=== PATIENT | female | born 1975 | race Caucasian/White ===

== ENCOUNTER 2017-07-14 11:53 | Inpatient (IN) | payer MEDICARE, MEDICAID ==
--- NOTE | 2017-07-14 12:06 | ED Physician Chart ---
ED Chief Complaint/HPI - Patient Information Date Seen:: 07/14/17 Time Seen:: 12:00 Chief Complaint:: G-Tube Dysfunction History of Present Illness:: onset x one day of G-Tube dysfunction and poor oral intake; no report of trauma , H/As, neck pain, C/P, SOB, Abd. Pain, A/N/V/D/C, fever, chills, or urinary s/s Historian:: Patient, EMS Review:: Nurse's Note Reviewed, Old Chart Reviewed, EMS run form Reviewed ED Review of Systems - Review of Systems General/Constitutional: No fever, No chills, No weight loss, No weakness, No diaphoresis, No edema, No loss of appetite Skin: No skin lesions, No rash, No bruising Head: No headache, No light-headedness Eyes: No loss of vision, No pain, No diplopia ENT: No earache, No nasal drainage, No sore throat, No tinnitus Neck: No neck pain, No swelling, No thyromegaly, No stiffness, No mass noted Cardio Vascular: No chest pain, No palpitations, No PND, No orthopnea, No edema Pulmonary: No SOB, No cough, No sputum, No wheezing GI: No nausea, No vomiting, No diarrhea, No pain, No melena, No hematochezia, No constipation, No hematemesis G/U: No dysuria, No frequency, No hematuria, No nacturia Lifts And Cranes Inspector: No vaginal discharge, No abnormal vaginal bleed, No contraction Musculoskeletal: No bone or joint pain, No back pain, No muscle pain Endocrine: No polyuria, No polydipsia Psychiatric: No prior psych history, No depression, No anxiety, No suicidal ideation, No homicidal ideation, No auditory hallucination, No visual hallucination Hematopoietic: No bruising, No lymphadenopathy Allergic/Immuno: No urticaria, No angioedema Neurological: No syncope, No focal symptoms, No weakness, No paresthesia, No headache, No seizure, No dizziness, Confusion, No vertigo ED Past Medical History - Past Medical History Obtainable: Yes Past Medical History: Seizures, Dementia, Other (CP;) Family History: HTN Social History: Non Smoker, No Alcohol, No Drug Use, Single, Care Facility Surgical History: PEG/GTube Psychiatricy History: Dementia Medication: Reviewed ED Physical Exam - Physical Examination General/Constitutional: Awake, Well-developed, well-nourished, Alert, No distress, GCS 15, Non-toxic appearing, Ambulatory Head: Atraumatic Eyes: Lids, conjuctiva normal, PERRL, EOMI Skin: Nl inspection, No rash, No skin lesions, No ecchymosis, Well hydrated, No lymphadenopathy ENMT: External ears, nose nl, TM canals nl, Nasal exam nl, Lips, teeth, gums nl , Oropharynx nl, Tonsils nl Neck: Nontender, Full ROM w/o pain, No JVD, No nuchal rigidity, No bruit, No mass, No stridor Respiratory: Nl effort/Exclusion, Clear to Auscultation, No Wheeze/Rhonchi/Rales Cardio Vascular: RRR, No murmur, gallop, rubs, NL S1 S2, Carotid/Femoral/Distal pulses equal bilaterally GI: No tenderness/rebounding/guarding, No organomegaly, No hernia, Normal BS's, Nondistended, No mass/bruits, No McBurney tenderness Other GI comments:: + G-Tube Dysfunction; no pulsatile masses : No CVA tenderness Extremities: No tenderness or effusion, Full ROM, normal strength in all extremities, No edema, Normal digits & nails Neuro/Psych: Alert/oriented, DTR's symmetric, Normal sensory exam, Normal motor strength, Judgement/insight normal, Mood normal, Normal gait, No focal deficits Misc: Normal back, No paraspinal tenderness ED Labs/Radiology/EKG Results - Lab Results Comments:: LA: 2.5 - Radiology Results Comments:: NAD ED Septic Shock - . Is Septic Shock (SBP<90, OR Lactate>4 mmol\L) present?: No ED Reassessment (Disposition) - Reassessment Reassessment Condition:: Improved - Diagnosis Diagnosis:: Dx: G-Tube Dysfunction; Poor Oral Intake; Dehydration - Aftercare/Follow up Instructions Aftercare/Follow-Up Instructions:: Counseled pt regarding lab results/diagnosis & need follow up, Counseled pt & family regarding lab results/diagnosis & need follow up - Patient Disposition Discharge/Transfer:: Acute Care w/in this hosp Accepting Physician:: Dr. Guan Time Called:: [id number] Time Responded:: 12:45 Admitted to:: Med/Surg Spoke to:: Dr. Guan Admitting Medical Physician:: Dr. Guan Condition at Disposition:: Stable, Improved
[2017-07-14] MEDS ORDERED: Sodium Chloride 0.9% 1,000 ML IV ONE (12:07)
[2017-07-14 12:34] LABS: % BASOPHILS 0.5 % (0.0-2.0); % EOSINOPHILS 2.5 % (0.0-5.0); % LYMPHOCYTES 24.3 % (20.0-50.0); % MONOCYTES 8.3 % (2.0-10.0); % NEUTROPHILS 64.4 % (40.0-80.0); EOSINOPHILE ABSOLUTE 0.2 Th/cmm (0.1-0.4); HEMATOCRIT 40.2 % (41.0-60); HEMOGLOBIN 13.3 gm/dL (12-16); MEAN CELL VOLUME 87.2 fl (81-100); MEAN CORPUSCULAR HEMOGLOBIN 28.9 pg (27.0-31.0); MEAN CORPUSCULAR HGB CONC 33.2 pg (28.0-36.0); MONOCYTE ABSOLUTE 0.7 Th/cmm (0.3-1.0); NEUTROPHILE ABSOLUTE 5.5 Th/cmm (1.8-8.0); PLATELET COUNT 308 Th/cmm (150-400); RED BLOOD COUNT 4.61 Mil/cmm (3.80-5.10); RED CELL DISTRIBUTION WIDTH 14.8 % (11.5-20.0); WHITE BLOOD COUNT 8.4 Th/cmm (4.8-10.8)
[2017-07-14 12:41] LABS: ALBUMIN 3.7 gm/dL (3.7-5.3); ALKALINE PHOSPHATASE 75 U/L (34-104); ANION GAP 11.6 (7.0-16.0); BILIRUBIN,TOTAL 0.2 mg/dL (0.3-1.0); BUN - UREA NITROGEN 15 mg/dL (7-25); CALCIUM SERUM 9.3 mg/dL (8.6-10.3); CARBON DIOXIDE 28.5 mEq/L (21.0-31.0); CHLORIDE 99 mEq/L (98-107); CREATININE - SERUM 0.3 mg/dL (0.6-1.2); GFR AFRICAN-AMERICAN > 60.0 ml/min (>90); GFR NON AFRICAN-AMERICAN > 60.0 ml/min; GLUCOSE 80 mg/dL (70-105); INR 1.02 (0.5-1.4); POTASSIUM SERUM 4.1 mEq/L (3.5-5.1); PROTHROMBIN TIME (TEST) 10.6 SECONDS (9.5-11.5); SGOT 14 U/L (13-39); SGPT/ALT 15 U/L (7-52); SODIUM SERUM 135 mEq/L (136-145); TOTAL PROTEIN,SERUM 7.5 gm/dL (6.0-8.3)
[2017-07-14 12:43] LABS: AMYLASE SERUM 26 U/L (29-103); LIPASE 23 U/L (11-82)
[2017-07-14] MEDS ORDERED: Albuterol Nebulizer 2.5mg/3mL HHN PRN (12:47)
[2017-07-14] MEDS ORDERED: Ipratropium Neb 0.5 mg/2.5 mL UD IH PRN (12:47)
--- NOTE | 2017-07-14 14:11 | Diagnostic Imaging Report ---
CHEST X-RAY: AP view INDICATION: Pneumonia COMPARISON: None FINDINGS: Exam is limited due to body habitus and spinal scoliosis. Extensive multilevel spinal scoliosis fixation hardware seen with evidence of fracture of the hardware along the lower thoracic spine. There is elevation of the right hemidiaphragm. Increased interstitial lung markings are noted. No focal consolidation or effusions. Heart size is normal. IMPRESSION: Limited exam due to body habitus and severe spinal scoliosis. Increased interstitial lung markings are noted, nonspecific. No focal consolidation identified. Fracture of the spinal scoliosis hardware along the lower thoracic spine. Findings may be chronic in etiology. Correlation should be made with clinical history and old exams.
[2017-07-14 14:51] LABS: URINE MICROSCOPIC INDICATED? YES; URINE SOURCE MIDSTREAM
[2017-07-14 15:04] LABS: URINE BILIRUBIN NEGATIVE (NEGATIVE); URINE BLOOD MODERATE (NEGATIVE); URINE GLUCOSE (UA) NEGATIVE (NEGATIVE); URINE KETONE NEGATIVE (NEGATIVE); URINE LEUKOCYTE ESTERASE LARGE (NEGATIVE); URINE NITRATE NEGATIVE (NEGATIVE); URINE PH 7.5 (4.6 - 8.0); URINE PROTEIN NEGATIVE (NEGATIVE); URINE UROBILINOGEN 0.2 E.U./dL (0.2 - 1.0)
[2017-07-14 15:05] LABS: URINE CLARITY CLOUDY (CLEAR); URINE COLOR STRAW
[2017-07-14 15:17] LABS: URINE BACTERIA FEW /hpf (NONE SEEN); URINE EPITHELIAL CELLS MANY /lpf (FEW); URINE WBC 25-50 /hpf (0-5)
[2017-07-14 15:24] VITALS: BP 118/79
[2017-07-14] MEDS: Levofloxacin 500mg/100mL 500 MG/100 ML BAG IV SCH (15:29)
[2017-07-14] MEDS: D5-0.45NS 1,000 ML IV SCH (15:31)
--- NOTE | 2017-07-14 16:18 | Internal Medicine Prog Note ---
Internal Medicine Subjective - Subjective Service Date: 07/14/17 ([id number] [id number] ) Internal Medicine Objective - Results Result Diagrams: 07/14/17 12:20 07/14/17 12:20 Recent Labs: Laboratory Last Values WBC 8.4 Th/cmm (4.8-10.8) 07/14/17 12:20 RBC 4.61 Mil/cmm (3.80-5.10) 07/14/17 12:20 Hgb 13.3 gm/dL (12-16) 07/14/17 12:20 Hct 40.2 % (41.0-60) L 07/14/17 12:20 MCV 87.2 fl (81-100) 07/14/17 12:20 MCH 28.9 pg (27.0-31.0) 07/14/17 12:20 MCHC Differential 33.2 pg (28.0-36.0) 07/14/17 12:20 RDW 14.8 % (11.5-20.0) 07/14/17 12:20 Plt Count 308 Th/cmm (150-400) 07/14/17 12:20 MPV 9.0 fl 07/14/17 12:20 Neutrophils % 64.4 % (40.0-80.0) 07/14/17 12:20 Lymphocytes % 24.3 % (20.0-50.0) 07/14/17 12:20 Monocytes % 8.3 % (2.0-10.0) 07/14/17 12:20 Eosinophils % 2.5 % (0.0-5.0) 07/14/17 12:20 Basophils % 0.5 % (0.0-2.0) 07/14/17 12:20 PT 10.6 SECONDS (9.5-11.5) 07/14/17 12:20 INR 1.02 (0.5-1.4) 07/14/17 12:20 PTT (Actin FS) 25.9 SECONDS (26.0-38.0) L 07/14/17 12:20 Sodium 135 mEq/L (136-145) L 07/14/17 12:20 Potassium 4.1 mEq/L (3.5-5.1) 07/14/17 12:20 Chloride 99 mEq/L (98-107) 07/14/17 12:20 Carbon Dioxide 28.5 mEq/L (21.0-31.0) 07/14/17 12:20 Anion Gap 11.6 (7.0-16.0) 07/14/17 12:20 BUN 15 mg/dL (7-25) 07/14/17 12:20 Creatinine 0.3 mg/dL (0.6-1.2) L 07/14/17 12:20 Est GFR ( Amer) > 60.0 ml/min (>90) 07/14/17 12:20 Est GFR (Non-Af Amer) > 60.0 ml/min 07/14/17 12:20 BUN/Creatinine Ratio 50.0 07/14/17 12:20 Glucose 80 mg/dL (70-105) 07/14/17 12:20 Whole Bld Lactic Acid 1.69 mmol/L (0.60-1.99) 07/14/17 14:20 Calcium 9.3 mg/dL (8.6-10.3) 07/14/17 12:20 Total Bilirubin 0.2 mg/dL (0.3-1.0) L 07/14/17 12:20 AST 14 U/L (13-39) 07/14/17 12:20 ALT 15 U/L (7-52) 07/14/17 12:20 Alkaline Phosphatase 75 U/L (34-104) 07/14/17 12:20 Total Protein 7.5 gm/dL (6.0-8.3) 07/14/17 12:20 Albumin 3.7 gm/dL (3.7-5.3) 07/14/17 12:20 Globulin 3.8 gm/dL 07/14/17 12:20 Albumin/Globulin Ratio 1.0 (1.0-1.8) 07/14/17 12:20 Amylase 26 U/L (29-103) L 07/14/17 12:20 Lipase 23 U/L (11-82) 07/14/17 12:20 Serum , Qual NEGATIVE (NEGATIVE) 07/14/17 12:20 Urine Source MIDSTREAM 07/14/17 13:41 Urine Color STRAW 07/14/17 13:41 Urine Clarity CLOUDY (CLEAR) H 07/14/17 13:41 Urine pH 7.5 (4.6 - 8.0) 07/14/17 13:41 Ur Specific [place] <= 1.005 (1.005-1.030) 07/14/17 13:41 Urine Protein NEGATIVE mg/dL (NEGATIVE) 07/14/17 13:41 Urine Glucose (UA) NEGATIVE mg/dL (NEGATIVE) 07/14/17 13:41 Urine Ketones NEGATIVE mg/dL (NEGATIVE) 07/14/17 13:41 Urine Blood MODERATE (NEGATIVE) H 07/14/17 13:41 Urine Nitrate NEGATIVE (NEGATIVE) 07/14/17 13:41 Urine Bilirubin NEGATIVE (NEGATIVE) 07/14/17 13:41 Urine Urobilinogen 0.2 E.U./dL (0.2 - 1.0) 07/14/17 13:41 Ur Leukocyte Esterase LARGE (NEGATIVE) H 07/14/17 13:41 Urine RBC 5-10 /hpf (0-5) H 07/14/17 13:41 Urine WBC 25-50 /hpf (0-5) H 07/14/17 13:41 Ur Epithelial Cells MANY /lpf (FEW) 07/14/17 13:41 Urine Bacteria FEW /hpf (NONE SEEN) 07/14/17 13:41 - Physical Exam Vitals and I&O: Vital Signs Temp 96.5 F 07/14/17 15:48 Pulse 98 07/14/17 15:48 Resp 19 07/14/17 15:48 BP 120/75 07/14/17 15:48 Pulse Ox 98 07/14/17 15:48 Intake & Output 07/13/17 07/14/17 07/14/17 18:59 06:59 18:59 Weight (lbs) 103 lb Other: Weight Source Bedscale Active Medications: Current Medications Acetaminophen (Tylenol) 650 mg PO Q4H PRN PRN Reason: Pain Or Fever above 101 Stop: 09/12/17 12:46 Albuterol Sulfate (Albuterol 2.5mg/3ml Neb Ud) 2.5 mg HHN Q2HRT PRN PRN Reason: Shortness of Breath or Wheeze Stop: 09/12/17 12:46 Calcium Carbonate (Calcium Carb) 1,200 mg GT BID JS Stop: 09/12/17 16:59 Cholecalciferol (Vitamin D3) 1,000 iu GT DAILY [facility] Stop: 09/13/17 08:59 Sodium Chloride (Nacl 0.9%) 1,000 mls @ 100 mls/hr IV .Q10H ONE Stop: 07/14/17 22:06 Dextrose/Sodium Chloride (D5-0.45ns) 1,000 mls @ 80 mls/hr IV .[id number] JS Stop: 09/12/17 12:59 Last Admin: 07/14/17 15:31 Dose: 80 mls/hr Levofloxacin (Levaquin Pb) 500 mg in 100 mls @ 100 mls/hr IV Q24HR JS Stop: 09/12/17 14:59 Last Admin: 07/14/17 15:29 Dose: 100 mls/hr Ipratropium [place] (Atrovent Neb 0.5mg/2.5ml) 0.5 mg IH Q2HRT PRN PRN Reason: Shortness of Breath or Wheeze Stop: 09/12/17 12:46 Levetiracetam (Keppra) 750 mg PO BID [facility] Stop: 09/12/17 16:59 Loratadine (Claritin) 10 mg GT DAILY [facility] Stop: 09/13/17 08:59 Lorazepam (Ativan) 1 mg IV Q4H PRN; Protocol PRN Reason: Seizure Stop: 09/12/17 12:46 Ondansetron HCl (Zofran) 4 mg IV Q8H PRN PRN Reason: Nausea / Vomiting Stop: 09/12/17 12:46 Pantoprazole Sodium (Protonix) 40 mg GT DAILY [facility] Stop: 09/13/17 08:59 Valproate Sodium (Depakene) 500 mg GT BID@0500,1500 JS PRN Reason: Protocol Stop: 09/12/17 14:59 Valproate Sodium (Depakene) 500 mg GT BID@0500,1900 [facility] PRN Reason: Protocol Stop: 09/12/17 18:59 - Procedures Procedures: Procedures Procedure Code Date EGD PLACE GASTROSTOMY TUBE 95568 02/19/00 PERCUTANEOUS [ENDOSCOPIC] GASTROSTOMY [PEG] 43.11 02/19/00
--- NOTE | 2017-07-14 17:57 | History & Physical ---
ADMIT DATE: 07/14/2017 CHIEF COMPLAINT: G-tube dysfunction. HISTORY OF PRESENT ILLNESS: This is a 42-year-old female who is a resident of [facility], admitted here to the med/surg unit due to G-tube dysfunction. In the ER, patient's ER physician tried to reinsert G-tube, unable to hold closed. For further management, the patient is now admitted. PAST MEDICAL HISTORY: Seizures, dementia, cerebral palsy. FAMILY HISTORY: Noncontributory. SOCIAL HISTORY: The patient is a half-way resident requiring 24-hour nursing care. PAST SURGICAL HISTORY: PEG. MEDICATIONS: Please see medication list. REVIEW OF SYSTEMS: Unable to obtain due to patient's mental status. The patient is nonverbal. PHYSICAL EXAMINATION: GENERAL: The patient is well developed, well nourished, no acute distress. VITAL SIGNS: Temperature 96.5, heart rate 98, blood pressure 120/75, respirations 19, O2 98%. HEENT: Head; normocephalic, atraumatic. NECK: Supple. No mass. LUNGS: Clear bilaterally. HEART: Regular rate and rhythm. ABDOMEN: Soft, nontender. LABORATORY DATA: WBC 8.4, H and H 13.3 and 40.2, platelet of 308. Sodium 135, potassium 4.1, chloride 99, BUN 15, creatinine 0.3. DIAGNOSTIC DATA: The patient had a chest x-ray done, impression is fracture of the spinal scoliosis hardware along the lower thoracic spine. Findings may be chronic in etiology. ASSESSMENT: G-tube malfunction, acute dehydration, possible sepsis, acute UTI, cerebral palsy, dementia, and seizures. PLAN: The patient to be admitted to the med/surg unit. We will get GI on the case. IV fluids for hydration. Seizure precautions will be initiated. Keep patient on empiric IV antibiotics. We will continue to follow this patient. JOB# [id number]
[2017-07-15] MEDS: Valproate Sodium 500 MG in Sodium Chloride 0.9% 100 ML IV SCH ×3 (00:03→22:05)
[2017-07-15] MEDS: D5-0.45NS 1,000 ML IV SCH ×3 (01:30→16:15)
[2017-07-15 06:40] LABS: EOSINOPHILE ABSOLUTE 0.2 Th/cmm (0.1-0.4); INR 1.06 (0.5-1.4); MONOCYTE ABSOLUTE 0.6 Th/cmm (0.3-1.0); WHITE BLOOD COUNT 7.3 Th/cmm (4.8-10.8)
[2017-07-15 06:44] LABS: % BASOPHILS 0.3 % (0.0-2.0); % LYMPHOCYTES 44.6 % (20.0-50.0); % MONOCYTES 8.4 % (2.0-10.0); % NEUTROPHILS 43.7 % (40.0-80.0); HEMATOCRIT 35.9 % (41.0-60); HEMOGLOBIN 12.4 gm/dL (12-16); LYMPHOCYTE ABSOLUTE 3.3 Th/cmm (1.5-3.0); MEAN CELL VOLUME 87.3 fl (81-100); MEAN CORPUSCULAR HEMOGLOBIN 30.1 pg (27.0-31.0); MEAN CORPUSCULAR HGB CONC 34.5 pg (28.0-36.0); MEAN PLATELET VOLUME 9.2 fl; NEUTROPHILE ABSOLUTE 3.2 Th/cmm (1.8-8.0); PLATELET COUNT 256 Th/cmm (150-400); RED BLOOD COUNT 4.11 Mil/cmm (3.80-5.10); RED CELL DISTRIBUTION WIDTH 14.4 % (11.5-20.0)
[2017-07-15 06:54] LABS: ANION GAP 10.7 (7.0-16.0); BUN - UREA NITROGEN 8 mg/dL (7-25); CALCIUM SERUM 8.9 mg/dL (8.6-10.3); CARBON DIOXIDE 26.6 mEq/L (21.0-31.0); CHLORIDE 105 mEq/L (98-107); CREATININE - SERUM 0.3 mg/dL (0.6-1.2); GFR AFRICAN-AMERICAN > 60.0 ml/min (>90); GFR NON AFRICAN-AMERICAN > 60.0 ml/min; GLUCOSE 94 mg/dL (70-105); POTASSIUM SERUM 4.3 mEq/L (3.5-5.1); SODIUM SERUM 138 mEq/L (136-145)
[2017-07-15] MEDS: Multivitamin w/ Minerals Tab GT SCH (08:36)
[2017-07-15] MEDS ORDERED: Pantoprazole 40 mg/Packet GT SCH (09:00)
[2017-07-15] MEDS: Levofloxacin 500mg/100mL 500 MG/100 ML BAG IV SCH (15:08)
--- NOTE | 2017-07-15 15:35 | Internal Medicine Prog Note ---
Internal Medicine Subjective - Subjective Service Date: 07/15/17 (patient seen and examined. bilateral eye lids noted with edema, no redness or drainage from conjuntiva) Patient is:: awake, non-verbal Per staff patient has:: tolerating meds Internal Medicine Objective - Results Result Diagrams: 07/15/17 06:00 07/15/17 06:00 Recent Labs: Laboratory Last Values WBC 7.3 Th/cmm (4.8-10.8) 07/15/17 06:00 RBC 4.11 Mil/cmm (3.80-5.10) 07/15/17 06:00 Hgb 12.4 gm/dL (12-16) 07/15/17 06:00 Hct 35.9 % (41.0-60) L 07/15/17 06:00 MCV 87.3 fl (81-100) 07/15/17 06:00 MCH 30.1 pg (27.0-31.0) 07/15/17 06:00 MCHC Differential 34.5 pg (28.0-36.0) 07/15/17 06:00 RDW 14.4 % (11.5-20.0) 07/15/17 06:00 Plt Count 256 Th/cmm (150-400) 07/15/17 06:00 MPV 9.2 fl 07/15/17 06:00 Neutrophils % 43.7 % (40.0-80.0) 07/15/17 06:00 Lymphocytes % 44.6 % (20.0-50.0) 07/15/17 06:00 Monocytes % 8.4 % (2.0-10.0) 07/15/17 06:00 Eosinophils % 3.0 % (0.0-5.0) 07/15/17 06:00 Basophils % 0.3 % (0.0-2.0) 07/15/17 06:00 PT 11.0 SECONDS (9.5-11.5) 07/15/17 06:00 INR 1.06 (0.5-1.4) 07/15/17 06:00 PTT (Actin FS) 25.9 SECONDS (26.0-38.0) L 07/14/17 12:20 Sodium 138 mEq/L (136-145) 07/15/17 06:00 Potassium 4.3 mEq/L (3.5-5.1) 07/15/17 06:00 Chloride 105 mEq/L (98-107) 07/15/17 06:00 Carbon Dioxide 26.6 mEq/L (21.0-31.0) 07/15/17 06:00 Anion Gap 10.7 (7.0-16.0) 07/15/17 06:00 BUN 8 mg/dL (7-25) 07/15/17 06:00 Creatinine 0.3 mg/dL (0.6-1.2) L 07/15/17 06:00 Est GFR ( Amer) > 60.0 ml/min (>90) 07/15/17 06:00 Est GFR (Non-Af Amer) > 60.0 ml/min 07/15/17 06:00 BUN/Creatinine Ratio 26.7 07/15/17 06:00 Glucose 94 mg/dL (70-105) 07/15/17 06:00 Whole Bld Lactic Acid 1.69 mmol/L (0.60-1.99) 07/14/17 14:20 Calcium 8.9 mg/dL (8.6-10.3) 07/15/17 06:00 Total Bilirubin 0.2 mg/dL (0.3-1.0) L 07/14/17 12:20 AST 14 U/L (13-39) 07/14/17 12:20 ALT 15 U/L (7-52) 07/14/17 12:20 Alkaline Phosphatase 75 U/L (34-104) 07/14/17 12:20 Total Protein 7.5 gm/dL (6.0-8.3) 07/14/17 12:20 Albumin 3.7 gm/dL (3.7-5.3) 07/14/17 12:20 Globulin 3.8 gm/dL 07/14/17 12:20 Albumin/Globulin Ratio 1.0 (1.0-1.8) 07/14/17 12:20 Amylase 26 U/L (29-103) L 07/14/17 12:20 Lipase 23 U/L (11-82) 07/14/17 12:20 TSH 9.35 uIU/ml (0.34-5.60) H 07/15/17 06:00 Serum , Qual NEGATIVE (NEGATIVE) 07/14/17 12:20 Urine Source MIDSTREAM 07/14/17 13:41 Urine Color STRAW 07/14/17 13:41 Urine Clarity CLOUDY (CLEAR) H 07/14/17 13:41 Urine pH 7.5 (4.6 - 8.0) 07/14/17 13:41 Ur Specific [place] <= 1.005 (1.005-1.030) 07/14/17 13:41 Urine Protein NEGATIVE mg/dL (NEGATIVE) 07/14/17 13:41 Urine Glucose (UA) NEGATIVE mg/dL (NEGATIVE) 07/14/17 13:41 Urine Ketones NEGATIVE mg/dL (NEGATIVE) 07/14/17 13:41 Urine Blood MODERATE (NEGATIVE) H 07/14/17 13:41 Urine Nitrate NEGATIVE (NEGATIVE) 07/14/17 13:41 Urine Bilirubin NEGATIVE (NEGATIVE) 07/14/17 13:41 Urine Urobilinogen 0.2 E.U./dL (0.2 - 1.0) 07/14/17 13:41 Ur Leukocyte Esterase LARGE (NEGATIVE) H 07/14/17 13:41 Urine RBC 5-10 /hpf (0-5) H 07/14/17 13:41 Urine WBC 25-50 /hpf (0-5) H 07/14/17 13:41 Ur Epithelial Cells MANY /lpf (FEW) 07/14/17 13:41 Urine Bacteria FEW /hpf (NONE SEEN) 07/14/17 13:41 Valproic Acid 50.3 ug/mL (50.0-100.0) 07/14/17 12:20 - Physical Exam Vitals and I&O: Vital Signs Temp 95.2 F 07/15/17 12:03 Pulse 107 07/15/17 12:03 Resp 18 07/15/17 12:03 BP 112/71 07/15/17 12:03 Pulse Ox 98 07/15/17 12:03 Intake & Output 07/14/17 07/15/17 07/15/17 18:59 06:59 18:59 Intake Total 100 1212.5 Output Total 0 Balance 100 1212.5 Weight (lbs) 103 lb 102 lb 103 lb Intake: Intake, IV Amount 100 1212.5 D5-0.45NS 1,000 ml @ 80 1000 mls/hr IV .[id number] JS Rx #:[id number] Levetiracetam 750 mg In 107.5 Sodium Chloride 0.9% 100 ml @ 200 mls/hr IV Q12H [facility] Rx#:[id number] Levofloxacin 500mg/100mL 100 500 mg In 100 ml @ 100 mls/hr IV Q24HR [facility] Rx#: [id number] Valproate Sodium 500 mg 105 In Sodium Chloride 0.9% 100 ml @ 100 mls/hr IV Q12H [facility] Rx#:[id number] Oral 0 Output: Stool 0 Other: # Voids 2 # Bowel Movements 0 Weight Source Bedscale Bedscale Bedscale Active Medications: Current Medications Acetaminophen (Tylenol) 650 mg PO Q4H PRN PRN Reason: Pain Or Fever above 101 Stop: 09/12/17 12:46 Albuterol Sulfate (Albuterol 2.5mg/3ml Neb Ud) 2.5 mg HHN Q2HRT PRN PRN Reason: Shortness of Breath or Wheeze Stop: 09/12/17 12:46 Calcium Carbonate (Calcium Carb) 1,200 mg GT BID [facility] Stop: 09/12/17 16:59 Last Admin: 07/15/17 08:35 Dose: Not Given Cholecalciferol (Vitamin D3) 1,000 iu GT DAILY [facility] Stop: 09/13/17 08:59 Last Admin: 07/15/17 08:35 Dose: Not Given Diphenhydramine HCl (Benadryl 50 Mg/Ml) 25 mg IVP STAT ONE Stop: 07/15/17 15:33 Dextrose/Sodium Chloride (D5-0.45ns) 1,000 mls @ 80 mls/hr IV .[id number] [facility] Stop: 09/12/17 12:59 Last Admin: 07/15/17 15:07 Dose: 80 mls/hr Levofloxacin (Levaquin Pb) 500 mg in 100 mls @ 100 mls/hr IV Q24HR [facility] Stop: 09/12/17 14:59 Last Admin: 07/15/17 15:08 Dose: 100 mls/hr Valproate Sodium 500 mg/ (Sodium Chloride) 105 mls @ 100 mls/hr IV Q12H [facility] Stop: 09/12/17 19:59 Last Admin: 07/15/17 09:00 Dose: 100 mls/hr Levetiracetam 750 mg/ Sodium (Chloride) 107.5 mls @ 200 mls/hr IV Q12H JS Stop: 09/12/17 19:59 Last Admin: 07/15/17 08:35 Dose: 200 mls/hr Ipratropium [place] (Atrovent Neb 0.5mg/2.5ml) 0.5 mg IH Q2HRT PRN PRN Reason: Shortness of Breath or Wheeze Stop: 09/12/17 12:46 Levothyroxine Sodium (Synthroid) 0.05 mg PO QDAC JS Stop: 09/14/17 07:29 Loratadine (Claritin) 10 mg GT DAILY JS Stop: 09/13/17 08:59 Last Admin: 07/15/17 08:35 Dose: Not Given Lorazepam (Ativan) 1 mg IV Q4H PRN; Protocol PRN Reason: Seizure Stop: 09/12/17 12:46 Last Admin: 07/14/17 18:32 Dose: 1 mg Ondansetron HCl (Zofran) 4 mg IV Q8H PRN PRN Reason: Nausea / Vomiting Stop: 09/12/17 12:46 Pantoprazole Sodium (Protonix) 40 mg IVP DAILY JS Stop: 09/12/17 17:14 Last Admin: 07/15/17 08:36 Dose: Not Given General: weak, alert HEENT: NC/AT, PERRLA, other (bilateral eyelid edema) Neck: Supple Lungs: CTAB Abdomen: soft, non-tender, non-distended Extremities: excoriation Neurological: unable to follow command - Procedures Procedures: Procedures Procedure Code Date EGD PLACE GASTROSTOMY TUBE 93643 02/19/00 PERCUTANEOUS [ENDOSCOPIC] GASTROSTOMY [PEG] 43.11 02/19/00 Internal Medicine Assmt/Plan - Assessment Assessment: gt malfunction acute dehydration possible sepsis acute uti bilateral eyelid edema- allergic reaction? dementia seizures - Plan Plan: benadryl 25mg iv x1 decrease ivf to 50ml/hr cbc/bmp in am monitor bilateral eye swelling continue current plan of care Nutritional Asmnt/Malnutr-PDOC - Dietary Evaluation Malnutrition Findings (Please click <Entered> for more info): Nutritional Asmnt/Malnutrition Start: 07/15/17 14: 51 Text: Status: Complete Freq: Document 07/15/17 14:51 [email or web address] (Rec: 07/15/17 15:03 [id number]) Nutritional Asmnt/Malnutrition Patient General Information Nutritional Screening High Risk Diagnosis dehydration, possible sepsis Pertinent Medical Hx/Surgical Hx seizure, dementia, cerabral palsy, PEG Subjective Information Per nurse, pt has PEG placement around noon today. Current Diet Order/ Nutrition Support NPO Pertinent Medications vit D3, D5-0.45ns, levaquin, synthroid, protonix, Pertinent Labs 5/3 Cr 0.3 Nutritional Hx/Data Height 4 ft 4 in Height (Calculated Centimeters) 132.1 Current Weight (lbs) 103 lb Weight (Calculated Kilograms) 46.7 Weight (Calculated Grams) 77113.0 [place] Body Weight 84 Body Mass Index (BMI) 26.7 Weight Status Overweight GI Symptoms GI Symptoms None Last BM none Difficult in: None Skin Integrity/Comment: RED SPOTS ON UPPER AND LOWER EXTREMITIES SURGICAL SCAR to back area Current %PO Negligible < 25% Estimated Nutritional Goals BEE in Kcals: Using Current wt Calories/Kcals/Kg 25-30 Kcals Calculated 3603-2217 Protein: Using Current wt Protein g/k-1.2 Protein Calculated 47-56 Fluid: ml 1175-1410ml (1ml/kcal) Nutritional Problem 1. Problem Problem inadequate energy intake Etiology nutiriton support not initiated Signs/Symptoms: pt on NPO Intervention/Recommendation Comments 1. If tube feeding needed, recommend fibersource 45ml/hr continuous. It provides 1296kcal, 58g protein, 875ml free water, meeting 100% of nutritional needs 2. Monitor TF tolerance, wt weekly, skin integrity and labs 3. F/U as high risk in 2-3 days, 5/5-5/6 Expected Outcomes/Goals Expected Outcomes/Goals 1. Pt to meet at least 75% of nutritional needs via nutrition support with tolerance 2. Wt stability, skin to remain intact, labs to approach WNL.
[2017-07-15] MEDS ORDERED: Morphine Sulfate 2 mg/mL 1mL Syr IM PRN (16:12)
[2017-07-15] MEDS ORDERED: Morphine Sulfate 4 mg/mL 1mL Syr ONE (16:28)
[2017-07-15] MEDS ORDERED: Morphine Sulfate 4 mg/mL 1mL Syr IM PRN (16:30)
--- NOTE | 2017-07-15 17:32 | Operative Report ---
DATE OF SURGERY: 07/15/2017 INPATIENT GASTROINTESTINAL PROCEDURE NOTE NAME OF PROCEDURE: PEG tube placement. REFERRING PHYSICIAN: Dr. Guan. REASON FOR PROCEDURE: Malfunctioning G-tube, dysphagia. CONSENT: Risks, benefits, alternatives, nature, indication, possible outcomes were discussed. Mentioned bleeding, infection, perforation, , disability, cardiopulmonary distress and arrest, missed lesion and cancers, need for surgery, cellulitis, malfunctioning feeding tube and patient pulling out the feeding tube. The patient's family expressed understanding and provided informed consent. PREOPERATIVE DIAGNOSIS: Dysphagia, malfunctioning G-tube. POSTOPERATIVE DIAGNOSIS: New PEG tube placed. MEDICATIONS: Provided by the anesthesiologist due to patient's mental challenges. DESCRIPTION OF PROCEDURE: The patient was placed on her back. Upper endoscope advanced from mouth to second portion of duodenum. Scope brought back in stomach with retroflexion view of fundus, cardia and lesser curvature. Scope was straightened. The gastrocutaneous fistula site was still open. Using a guidewire, we advanced it from the outside into the stomach lumen, captured with a snare, pulled out through the oral end of the patient. PEG tube was attached to the oral end of the wire. The wire was then pulled into position pulling along with it, the PEG tube. Gastroscope readvanced back to the stomach where the bumper seen in satisfactory position. Scope was removed. COMPLICATIONS: None. FINDINGS: New PEG tube placed in the original site. RECOMMENDATIONS: 1. Use G-tube. 2. Check residual every 6 hours and hold greater than 100 mL. 3. Abdominal binder to protect the G-tube. Thank you for allowing me to participate. Please call me if any questions. JOB# [id number]
[2017-07-15] MEDS ORDERED: Levetiracetam 500 mg/5mL 5mL UDSyr *for ORAL USE ONLY ONE (23:10)
[2017-07-15] MEDS ORDERED: Levetiracetam 500 mg/5mL 5mL Vial IV ONE (23:13)
[2017-07-16 05:35] LABS: % BASOPHILS 0.7 % (0.0-2.0); % EOSINOPHILS 1.6 % (0.0-5.0); % LYMPHOCYTES 21.6 % (20.0-50.0); % MONOCYTES 7.3 % (2.0-10.0); % NEUTROPHILS 68.8 % (40.0-80.0); BASOPHILE ABSOLUTE 0.1 Th/cumm (0-0.2); EOSINOPHILE ABSOLUTE 0.2 Th/cmm (0.1-0.4); HEMATOCRIT 36.4 % (41.0-60); HEMOGLOBIN 12.4 gm/dL (12-16); LYMPHOCYTE ABSOLUTE 2.3 Th/cmm (1.5-3.0); MEAN CELL VOLUME 87.5 fl (81-100); MEAN CORPUSCULAR HEMOGLOBIN 29.8 pg (27.0-31.0); MEAN CORPUSCULAR HGB CONC 34.1 pg (28.0-36.0); MEAN PLATELET VOLUME 10.1 fl; MONOCYTE ABSOLUTE 0.8 Th/cmm (0.3-1.0); NEUTROPHILE ABSOLUTE 7.2 Th/cmm (1.8-8.0); PLATELET COUNT 257 Th/cmm (150-400); RED BLOOD COUNT 4.17 Mil/cmm (3.80-5.10); RED CELL DISTRIBUTION WIDTH 14.6 % (11.5-20.0)
[2017-07-16 05:42] LABS: ANION GAP 8.5 (7.0-16.0); BUN - UREA NITROGEN 5 mg/dL (7-25); CALCIUM SERUM 8.9 mg/dL (8.6-10.3); CARBON DIOXIDE 26.6 mEq/L (21.0-31.0); CHLORIDE 105 mEq/L (98-107); CREATININE - SERUM 0.3 mg/dL (0.6-1.2); GFR AFRICAN-AMERICAN > 60.0 ml/min (>90); GFR NON AFRICAN-AMERICAN > 60.0 ml/min; GLUCOSE 94 mg/dL (70-105); POTASSIUM SERUM 4.1 mEq/L (3.5-5.1); SODIUM SERUM 136 mEq/L (136-145)
[2017-07-16 05:51] LABS: WHITE BLOOD COUNT 10.6 Th/cmm (4.8-10.8)
[2017-07-16] MEDS: Multivitamin w/ Minerals Tab GT SCH (08:41)
[2017-07-16] MEDS: Levothyroxine 0.05 Mg Tab PO SCH (08:41)
[2017-07-16] MEDS: Valproate Sodium 500 MG in Sodium Chloride 0.9% 100 ML IV SCH ×2 (09:40→20:37)
--- NOTE | 2017-07-16 11:38 | Consultation ---
DATE OF CONSULTATION: 07/15/2017 INPATIENT GASTROINTESTINAL CONSULT REFERRING PHYSICIAN: Dr. Guan. REASON FOR CONSULTATION: Malfunctioning G-tube, dysphagia. HISTORY OF PRESENT ILLNESS: This is a 42-year-old female, mentally challenged from a skilled facility, apparently pulled out a G-tube and the hole is too small for them to replace it. Therefore, she was sent to the hospital. She is otherwise a poor historian. PAST MEDICAL HISTORY: Seizure disorder, dementia, cerebral palsy. PAST SURGICAL HISTORY: PEG tube placement. FAMILY HISTORY: Noncontributory. SOCIAL HISTORY: No tobacco, alcohol or IV drug usage. ALLERGIES: SULFA, BACTRIM. CURRENT MEDICATIONS: Tylenol, calcium, Ativan, levetiracetam, Levaquin, Synthroid, Claritin, Ativan, Zofran, Protonix, valproic acid. REVIEW OF SYSTEMS: Unobtainable. PHYSICAL EXAMINATION: VITAL SIGNS: Temperature 95.2, breathing 18, pulse of 107, blood pressure 112/71, satting 98%. GENERAL: In no apparent distress. HEENT: Normocephalic, atraumatic. NECK: Soft, supple. CHEST: Clear. No effort. CARDIOVASCULAR: Regular rate and rhythm. ABDOMEN: Soft, nontender, nondistended with a gastrocutaneous fistula site. SKIN: Warm, dry. EXTREMITIES: Reveal no cyanosis. LABORATORY AND DIAGNOSTIC DATA: Labs show white count 7.3, hemoglobin 12.4, platelets of 256. INR 1.06. IMPRESSION: This is a 42-year-old female with dysphagia, pulled out her feeding tube, will need to have it replaced. PLAN: PEG to be done. Thank you for allowing me to participate. Please call me if you have any questions. JOB# [id number]
[2017-07-16] MEDS: D5-0.45NS 1,000 ML IV SCH (13:36)
[2017-07-16] MEDS: Levofloxacin 500mg/100mL 500 MG/100 ML BAG IV SCH (14:29)
--- NOTE | 2017-07-16 14:52 | Internal Medicine Prog Note ---
Internal Medicine Subjective - Subjective Service Date: 07/16/17 Patient seen and examined:: with staff Patient is:: awake, non-verbal Per staff patient has:: tolerating meds Internal Medicine Objective - Results Result Diagrams: 07/16/17 05:05 07/16/17 05:05 Recent Labs: Laboratory Last Values WBC 10.6 Th/cmm (4.8-10.8) D 07/16/17 05:05 RBC 4.17 Mil/cmm (3.80-5.10) 07/16/17 05:05 Hgb 12.4 gm/dL (12-16) 07/16/17 05:05 Hct 36.4 % (41.0-60) L 07/16/17 05:05 MCV 87.5 fl (81-100) 07/16/17 05:05 MCH 29.8 pg (27.0-31.0) 07/16/17 05:05 MCHC Differential 34.1 pg (28.0-36.0) 07/16/17 05:05 RDW 14.6 % (11.5-20.0) 07/16/17 05:05 Plt Count 257 Th/cmm (150-400) 07/16/17 05:05 MPV 10.1 fl 07/16/17 05:05 Neutrophils % 68.8 % (40.0-80.0) 07/16/17 05:05 Lymphocytes % 21.6 % (20.0-50.0) 07/16/17 05:05 Monocytes % 7.3 % (2.0-10.0) 07/16/17 05:05 Eosinophils % 1.6 % (0.0-5.0) 07/16/17 05:05 Basophils % 0.7 % (0.0-2.0) 07/16/17 05:05 PT 11.0 SECONDS (9.5-11.5) 07/15/17 06:00 INR 1.06 (0.5-1.4) 07/15/17 06:00 PTT (Actin FS) 25.9 SECONDS (26.0-38.0) L 07/14/17 12:20 Sodium 136 mEq/L (136-145) 07/16/17 05:05 Potassium 4.1 mEq/L (3.5-5.1) 07/16/17 05:05 Chloride 105 mEq/L (98-107) 07/16/17 05:05 Carbon Dioxide 26.6 mEq/L (21.0-31.0) 07/16/17 05:05 Anion Gap 8.5 (7.0-16.0) 07/16/17 05:05 BUN 5 mg/dL (7-25) L 07/16/17 05:05 Creatinine 0.3 mg/dL (0.6-1.2) L 07/16/17 05:05 Est GFR ( Amer) > 60.0 ml/min (>90) 07/16/17 05:05 Est GFR (Non-Af Amer) > 60.0 ml/min 07/16/17 05:05 BUN/Creatinine Ratio 16.7 07/16/17 05:05 Glucose 94 mg/dL (70-105) 07/16/17 05:05 Whole Bld Lactic Acid 1.69 mmol/L (0.60-1.99) 07/14/17 14:20 Calcium 8.9 mg/dL (8.6-10.3) 07/16/17 05:05 Total Bilirubin 0.2 mg/dL (0.3-1.0) L 07/14/17 12:20 AST 14 U/L (13-39) 07/14/17 12:20 ALT 15 U/L (7-52) 07/14/17 12:20 Alkaline Phosphatase 75 U/L (34-104) 07/14/17 12:20 Total Protein 7.5 gm/dL (6.0-8.3) 07/14/17 12:20 Albumin 3.7 gm/dL (3.7-5.3) 07/14/17 12:20 Globulin 3.8 gm/dL 07/14/17 12:20 Albumin/Globulin Ratio 1.0 (1.0-1.8) 07/14/17 12:20 Amylase 26 U/L (29-103) L 07/14/17 12:20 Lipase 23 U/L (11-82) 07/14/17 12:20 TSH 9.35 uIU/ml (0.34-5.60) H 07/15/17 06:00 Serum , Qual NEGATIVE (NEGATIVE) 07/14/17 12:20 Urine Source MIDSTREAM 07/14/17 13:41 Urine Color STRAW 07/14/17 13:41 Urine Clarity CLOUDY (CLEAR) H 07/14/17 13:41 Urine pH 7.5 (4.6 - 8.0) 07/14/17 13:41 Ur Specific [place] <= 1.005 (1.005-1.030) 07/14/17 13:41 Urine Protein NEGATIVE mg/dL (NEGATIVE) 07/14/17 13:41 Urine Glucose (UA) NEGATIVE mg/dL (NEGATIVE) 07/14/17 13:41 Urine Ketones NEGATIVE mg/dL (NEGATIVE) 07/14/17 13:41 Urine Blood MODERATE (NEGATIVE) H 07/14/17 13:41 Urine Nitrate NEGATIVE (NEGATIVE) 07/14/17 13:41 Urine Bilirubin NEGATIVE (NEGATIVE) 07/14/17 13:41 Urine Urobilinogen 0.2 E.U./dL (0.2 - 1.0) 07/14/17 13:41 Ur Leukocyte Esterase LARGE (NEGATIVE) H 07/14/17 13:41 Urine RBC 5-10 /hpf (0-5) H 07/14/17 13:41 Urine WBC 25-50 /hpf (0-5) H 07/14/17 13:41 Ur Epithelial Cells MANY /lpf (FEW) 07/14/17 13:41 Urine Bacteria FEW /hpf (NONE SEEN) 07/14/17 13:41 Valproic Acid 50.3 ug/mL (50.0-100.0) 07/14/17 12:20 - Physical Exam Vitals and I&O: Vital Signs Temp 97.3 F 07/16/17 12:00 Pulse 94 07/16/17 12:00 Resp 18 07/16/17 12:00 BP 109/72 07/16/17 12:00 Pulse Ox 97 07/16/17 12:00 Intake & Output 07/15/17 07/16/17 07/16/17 18:59 06:59 18:59 Intake Total 312.5 632.5 1200 Balance 312.5 632.5 1200 Weight (lbs) 103 lb 113 lb 113 lb Intake: Intake, IV Amount 312.5 212.5 1100 D5-0.45NS 1,000 ml @ 50 1000 mls/hr IV .Q20H [facility] Rx#: [id number] Levetiracetam 750 mg In 107.5 107.5 Sodium Chloride 0.9% 100 ml @ 200 mls/hr IV Q12H [facility] Rx#:[id number] Levofloxacin 500mg/100mL 100 500 mg In 100 ml @ 100 mls/hr IV Q24HR [facility] Rx#: [id number] Valproate Sodium 500 mg 105 105 In Sodium Chloride 0.9% 100 ml @ 100 mls/hr IV Q12H [facility] Rx#:[id number] Tube Feeding 420 100 Other: # Voids 3 # Bowel Movements 0 Weight Source Bedscale Bedscale Bedscale Active Medications: Current Medications Acetaminophen (Tylenol) 650 mg PO Q4H PRN PRN Reason: Pain Or Fever above 101 Stop: 09/12/17 12:46 Albuterol Sulfate (Albuterol 2.5mg/3ml Neb Ud) 2.5 mg HHN Q2HRT PRN PRN Reason: Shortness of Breath or Wheeze Stop: 09/12/17 12:46 Calcium Carbonate (Calcium Carb) 1,200 mg GT BID [facility] Stop: 09/12/17 16:59 Last Admin: 07/16/17 08:41 Dose: 1,200 mg Cholecalciferol (Vitamin D3) 1,000 iu GT DAILY [facility] Stop: 09/13/17 08:59 Last Admin: 07/16/17 08:40 Dose: 1,000 iu Levofloxacin (Levaquin Pb) 500 mg in 100 mls @ 100 mls/hr IV Q24HR [facility] Stop: 09/12/17 14:59 Last Admin: 07/16/17 14:29 Dose: 100 mls/hr Valproate Sodium 500 mg/ (Sodium Chloride) 105 mls @ 100 mls/hr IV Q12H [facility] Stop: 09/12/17 19:59 Last Admin: 07/16/17 09:40 Dose: 100 mls/hr Levetiracetam 750 mg/ Sodium (Chloride) 107.5 mls @ 200 mls/hr IV Q12H [facility] Stop: 09/12/17 19:59 Last Admin: 07/16/17 08:41 Dose: 200 mls/hr Dextrose/Sodium Chloride (D5-0.45ns) 1,000 mls @ 50 mls/hr IV .Q20H [facility] Stop: 09/13/17 15:34 Last Admin: 07/16/17 13:36 Dose: 50 mls/hr Ipratropium [place] (Atrovent Neb 0.5mg/2.5ml) 0.5 mg IH Q2HRT PRN PRN Reason: Shortness of Breath or Wheeze Stop: 09/12/17 12:46 Levothyroxine Sodium (Synthroid) 0.05 mg PO QDAC [facility] Stop: 09/14/17 07:29 Last Admin: 07/16/17 08:41 Dose: 0.05 mg Loratadine (Claritin) 10 mg GT DAILY [facility] Stop: 09/13/17 08:59 Last Admin: 07/16/17 08:40 Dose: 10 mg Lorazepam (Ativan) 1 mg IV Q4H PRN; Protocol PRN Reason: Seizure Stop: 09/12/17 12:46 Last Admin: 07/14/17 18:32 Dose: 1 mg Morphine Sulfate (Morphine) 1 mg IM Q4HR PRN PRN Reason: Severe Pain Stop: 09/13/17 16:11 Ondansetron HCl (Zofran) 4 mg IV Q8H PRN PRN Reason: Nausea / Vomiting Stop: 09/12/17 12:46 Pantoprazole Sodium (Protonix) 40 mg IVP DAILY [facility] Stop: 09/12/17 17:14 Last Admin: 07/16/17 08:41 Dose: 40 mg General: weak, alert HEENT: NC/AT, PERRLA, other (bilateral eyelid edema) Neck: Supple Lungs: CTAB Abdomen: soft, non-tender, non-distended Extremities: excoriation Neurological: unable to follow command - Procedures Procedures: Procedures Procedure Code Date EGD PLACE GASTROSTOMY TUBE 37459 07/14/17 INSERTION OF FEEDING DEVICE INTO STOMACH, PERC APPROACH [id number] 07/14/17 PERCUTANEOUS [ENDOSCOPIC] GASTROSTOMY [PEG] 43.11 02/19/00 Internal Medicine Assmt/Plan - Assessment Assessment: gt malfunction acute dehydration possible sepsis acute uti bilateral eyelid edema- allergic reaction? dementia seizures - Plan Plan: cbc/bmp in am monitor bilateral eye swelling continue current plan of care Nutritional Asmnt/Malnutr-PDOC - Dietary Evaluation Malnutrition Findings (Please click <Entered> for more info): Nutritional Asmnt/Malnutrition Start: 07/15/17 14: 51 Text: Status: Complete Freq: Document 07/15/17 14:51 LCYANG (Rec: 07/15/17 15:03 HENG [email or web address]) Nutritional Asmnt/Malnutrition Patient General Information Nutritional Screening High Risk Diagnosis dehydration, possible sepsis Pertinent Medical Hx/Surgical Hx seizure, dementia, cerabral palsy, PEG Subjective Information Per nurse, pt has PEG placement around noon today. Current Diet Order/ Nutrition Support NPO Pertinent Medications vit D3, D5-0.45ns, levaquin, synthroid, protonix, Pertinent Labs 5/3 Cr 0.3 Nutritional Hx/Data Height 4 ft 4 in Height (Calculated Centimeters) 132.1 Current Weight (lbs) 103 lb Weight (Calculated Kilograms) 46.7 Weight (Calculated Grams) 54570.0 [place] Body Weight 84 Body Mass Index (BMI) 26.7 Weight Status Overweight GI Symptoms GI Symptoms None Last BM none Difficult in: None Skin Integrity/Comment: RED SPOTS ON UPPER AND LOWER EXTREMITIES SURGICAL SCAR to back area Current %PO Negligible < 25% Estimated Nutritional Goals BEE in Kcals: Using Current wt Calories/Kcals/Kg 25-30 Kcals Calculated 8627-7408 Protein: Using Current wt Protein g/k-1.2 Protein Calculated 47-56 Fluid: ml 1175-1410ml (1ml/kcal) Nutritional Problem 1. Problem Problem inadequate energy intake Etiology nutiriton support not initiated Signs/Symptoms: pt on NPO Intervention/Recommendation Comments 1. If tube feeding needed, recommend fibersource 45ml/hr continuous. It provides 1296kcal, 58g protein, 875ml free water, meeting 100% of nutritional needs 2. Monitor TF tolerance, wt weekly, skin integrity and labs 3. F/U as high risk in 2-3 days, 07/17-07/18 Expected Outcomes/Goals Expected Outcomes/Goals 1. Pt to meet at least 75% of nutritional needs via nutrition support with tolerance 2. Wt stability, skin to remain intact, labs to approach WNL.
[2017-07-17 06:11] LABS: % BASOPHILS 0.2 % (0.0-2.0); % EOSINOPHILS 1.2 % (0.0-5.0); % LYMPHOCYTES 41.8 % (20.0-50.0); % NEUTROPHILS 46.8 % (40.0-80.0); EOSINOPHILE ABSOLUTE 0.1 Th/cmm (0.1-0.4); HEMATOCRIT 35.6 % (41.0-60); HEMOGLOBIN 12.1 gm/dL (12-16); LYMPHOCYTE ABSOLUTE 2.9 Th/cmm (1.5-3.0); MEAN CORPUSCULAR HEMOGLOBIN 29.6 pg (27.0-31.0); MEAN PLATELET VOLUME 9.4 fl; MONOCYTE ABSOLUTE 0.7 Th/cmm (0.3-1.0); NEUTROPHILE ABSOLUTE 3.3 Th/cmm (1.8-8.0); PLATELET COUNT 294 Th/cmm (150-400); RED BLOOD COUNT 4.09 Mil/cmm (3.80-5.10); RED CELL DISTRIBUTION WIDTH 14.9 % (11.5-20.0)
[2017-07-17 06:22] LABS: BUN - UREA NITROGEN 11 mg/dL (7-25); CALCIUM SERUM 8.9 mg/dL (8.6-10.3); CARBON DIOXIDE 24.7 mEq/L (21.0-31.0); CHLORIDE 107 mEq/L (98-107); CREATININE - SERUM 0.3 mg/dL (0.6-1.2); GFR AFRICAN-AMERICAN > 60.0 ml/min (>90); GFR NON AFRICAN-AMERICAN > 60.0 ml/min; GLUCOSE 114 mg/dL (70-105); POTASSIUM SERUM 3.7 mEq/L (3.5-5.1); SODIUM SERUM 139 mEq/L (136-145)
[2017-07-17] MEDS: Levothyroxine 0.05 Mg Tab PO SCH (06:40)
[2017-07-17] MEDS: Valproate Sodium 500 MG in Sodium Chloride 0.9% 100 ML IV SCH ×2 (07:36→20:09)
[2017-07-17] MEDS: Multivitamin w/ Minerals Tab GT SCH (09:02)
--- NOTE | 2017-07-17 13:52 | Internal Medicine Prog Note ---
Internal Medicine Subjective - Subjective Service Date: 07/17/17 Patient seen and examined:: with staff Patient is:: awake, non-verbal Per staff patient has:: tolerating meds Internal Medicine Objective - Results Result Diagrams: 07/17/17 05:15 07/17/17 05:15 Recent Labs: Laboratory Last Values WBC 7.0 Th/cmm (4.8-10.8) 07/17/17 05:15 RBC 4.09 Mil/cmm (3.80-5.10) 07/17/17 05:15 Hgb 12.1 gm/dL (12-16) 07/17/17 05:15 Hct 35.6 % (41.0-60) L 07/17/17 05:15 MCV 87.0 fl (81-100) 07/17/17 05:15 MCH 29.6 pg (27.0-31.0) 07/17/17 05:15 MCHC Differential 34.0 pg (28.0-36.0) 07/17/17 05:15 RDW 14.9 % (11.5-20.0) 07/17/17 05:15 Plt Count 294 Th/cmm (150-400) 07/17/17 05:15 MPV 9.4 fl 07/17/17 05:15 Neutrophils % 46.8 % (40.0-80.0) 07/17/17 05:15 Lymphocytes % 41.8 % (20.0-50.0) 07/17/17 05:15 Monocytes % 10.0 % (2.0-10.0) 07/17/17 05:15 Eosinophils % 1.2 % (0.0-5.0) 07/17/17 05:15 Basophils % 0.2 % (0.0-2.0) 07/17/17 05:15 PT 11.0 SECONDS (9.5-11.5) 07/15/17 06:00 INR 1.06 (0.5-1.4) 07/15/17 06:00 PTT (Actin FS) 25.9 SECONDS (26.0-38.0) L 07/14/17 12:20 Sodium 139 mEq/L (136-145) 07/17/17 05:15 Potassium 3.7 mEq/L (3.5-5.1) 07/17/17 05:15 Chloride 107 mEq/L (98-107) 07/17/17 05:15 Carbon Dioxide 24.7 mEq/L (21.0-31.0) 07/17/17 05:15 Anion Gap 11.0 (7.0-16.0) 07/17/17 05:15 BUN 11 mg/dL (7-25) 07/17/17 05:15 Creatinine 0.3 mg/dL (0.6-1.2) L 07/17/17 05:15 Est GFR ( Amer) > 60.0 ml/min (>90) 07/17/17 05:15 Est GFR (Non-Af Amer) > 60.0 ml/min 07/17/17 05:15 BUN/Creatinine Ratio 36.7 07/17/17 05:15 Glucose 114 mg/dL (70-105) H 07/17/17 05:15 Whole Bld Lactic Acid 1.69 mmol/L (0.60-1.99) 07/14/17 14:20 Calcium 8.9 mg/dL (8.6-10.3) 07/17/17 05:15 Total Bilirubin 0.2 mg/dL (0.3-1.0) L 07/14/17 12:20 AST 14 U/L (13-39) 07/14/17 12:20 ALT 15 U/L (7-52) 07/14/17 12:20 Alkaline Phosphatase 75 U/L (34-104) 07/14/17 12:20 Total Protein 7.5 gm/dL (6.0-8.3) 07/14/17 12:20 Albumin 3.7 gm/dL (3.7-5.3) 07/14/17 12:20 Globulin 3.8 gm/dL 07/14/17 12:20 Albumin/Globulin Ratio 1.0 (1.0-1.8) 07/14/17 12:20 Amylase 26 U/L (29-103) L 07/14/17 12:20 Lipase 23 U/L (11-82) 07/14/17 12:20 TSH 9.35 uIU/ml (0.34-5.60) H 07/15/17 06:00 Serum , Qual NEGATIVE (NEGATIVE) 07/14/17 12:20 Urine Source MIDSTREAM 07/14/17 13:41 Urine Color STRAW 07/14/17 13:41 Urine Clarity CLOUDY (CLEAR) H 07/14/17 13:41 Urine pH 7.5 (4.6 - 8.0) 07/14/17 13:41 Ur Specific [place] <= 1.005 (1.005-1.030) 07/14/17 13:41 Urine Protein NEGATIVE mg/dL (NEGATIVE) 07/14/17 13:41 Urine Glucose (UA) NEGATIVE mg/dL (NEGATIVE) 07/14/17 13:41 Urine Ketones NEGATIVE mg/dL (NEGATIVE) 07/14/17 13:41 Urine Blood MODERATE (NEGATIVE) H 07/14/17 13:41 Urine Nitrate NEGATIVE (NEGATIVE) 07/14/17 13:41 Urine Bilirubin NEGATIVE (NEGATIVE) 07/14/17 13:41 Urine Urobilinogen 0.2 E.U./dL (0.2 - 1.0) 07/14/17 13:41 Ur Leukocyte Esterase LARGE (NEGATIVE) H 07/14/17 13:41 Urine RBC 5-10 /hpf (0-5) H 07/14/17 13:41 Urine WBC 25-50 /hpf (0-5) H 07/14/17 13:41 Ur Epithelial Cells MANY /lpf (FEW) 07/14/17 13:41 Urine Bacteria FEW /hpf (NONE SEEN) 07/14/17 13:41 Valproic Acid 50.3 ug/mL (50.0-100.0) 07/14/17 12:20 - Physical Exam Vitals and I&O: Vital Signs Temp 97.6 F 07/17/17 12:00 Pulse 93 07/17/17 12:00 Resp 18 07/17/17 12:00 BP 124/71 07/17/17 12:00 Pulse Ox 95 07/17/17 12:00 Intake & Output 07/16/17 07/17/17 07/17/17 18:59 06:59 18:59 Intake Total 1812.5 212.5 1117.5 Balance 1812.5 212.5 1117.5 Weight (lbs) 113 lb 113 lb Intake: Intake, IV Amount 1312.5 212.5 1117.5 D5-0.45NS 1,000 ml @ 50 1000 905 mls/hr IV .Q20H [facility] Rx#: [id number] Levetiracetam 750 mg In 107.5 107.5 107.5 Sodium Chloride 0.9% 100 ml @ 200 mls/hr IV Q12H [facility] Rx#:[id number] Valproate Sodium 500 mg 105 105 105 In Sodium Chloride 0.9% 100 ml @ 100 mls/hr IV Q12H [facility] Rx#:[id number] Tube Feeding 500 Other: Weight Source Bedscale Bedscale Active Medications: Current Medications Acetaminophen (Tylenol) 650 mg PO Q4H PRN PRN Reason: Pain Or Fever above 101 Stop: 09/12/17 12:46 Albuterol Sulfate (Albuterol 2.5mg/3ml Neb Ud) 2.5 mg HHN Q2HRT PRN PRN Reason: Shortness of Breath or Wheeze Stop: 09/12/17 12:46 Calcium Carbonate (Calcium Carb) 1,200 mg GT BID [facility] Stop: 09/12/17 16:59 Last Admin: 07/17/17 09:02 Dose: 1,200 mg Cholecalciferol (Vitamin D3) 1,000 iu GT DAILY [facility] Stop: 09/13/17 08:59 Last Admin: 07/17/17 09:02 Dose: 1,000 iu Levofloxacin (Levaquin Pb) 500 mg in 100 mls @ 100 mls/hr IV Q24HR [facility] Stop: 09/12/17 14:59 Last Admin: 07/16/17 14:29 Dose: 100 mls/hr Valproate Sodium 500 mg/ (Sodium Chloride) 105 mls @ 100 mls/hr IV Q12H [facility] Stop: 09/12/17 19:59 Last Infusion: 07/17/17 08:40 Dose: Infused Levetiracetam 750 mg/ Sodium (Chloride) 107.5 mls @ 200 mls/hr IV Q12H [facility] Stop: 09/12/17 19:59 Last Infusion: 07/17/17 09:15 Dose: Infused Dextrose/Sodium Chloride (D5-0.45ns) 1,000 mls @ 50 mls/hr IV .Q20H [facility] Stop: 09/13/17 15:34 Last Infusion: 07/17/17 11:37 Dose: 50 mls/hr Ipratropium [place] (Atrovent Neb 0.5mg/2.5ml) 0.5 mg IH Q2HRT PRN PRN Reason: Shortness of Breath or Wheeze Stop: 09/12/17 12:46 Levothyroxine Sodium (Synthroid) 0.05 mg PO QDAC [facility] Stop: 09/14/17 07:29 Last Admin: 07/17/17 06:40 Dose: 0.05 mg Loratadine (Claritin) 10 mg GT DAILY [facility] Stop: 09/13/17 08:59 Last Admin: 07/17/17 09:02 Dose: 10 mg Lorazepam (Ativan) 1 mg IV Q4H PRN; Protocol PRN Reason: Seizure Stop: 09/12/17 12:46 Last Admin: 07/14/17 18:32 Dose: 1 mg Morphine Sulfate (Morphine) 1 mg IM Q4HR PRN PRN Reason: Severe Pain Stop: 09/13/17 16:11 Ondansetron HCl (Zofran) 4 mg IV Q8H PRN PRN Reason: Nausea / Vomiting Stop: 09/12/17 12:46 Pantoprazole Sodium (Protonix) 40 mg IVP DAILY [facility] Stop: 09/12/17 17:14 Last Admin: 07/17/17 09:02 Dose: 40 mg General: weak, alert HEENT: NC/AT, PERRLA, other (bilateral eyelid edema) Neck: Supple Lungs: CTAB Abdomen: soft, non-tender, non-distended Extremities: excoriation Neurological: unable to follow command - Procedures Procedures: Procedures Procedure Code Date EGD PLACE GASTROSTOMY TUBE 47111 07/14/17 INSERTION OF FEEDING DEVICE INTO STOMACH, PERC APPROACH [id number] 07/14/17 PERCUTANEOUS [ENDOSCOPIC] GASTROSTOMY [PEG] 43.11 02/19/00 Internal Medicine Assmt/Plan - Assessment Assessment: gt malfunction acute dehydration possible sepsis acute uti bilateral eyelid edema- allergic reaction? dementia seizures - Plan Plan: cbc/bmp in am continue current plan of care Nutritional Asmnt/Malnutr-PDOC - Dietary Evaluation Malnutrition Findings (Please click <Entered> for more info): Nutritional Asmnt/Malnutrition Start: 07/15/17 14: 51 Text: Status: Complete Freq: Document 07/15/17 14:51 JULY (Rec: 07/15/17 15:03 JULY [email or web address]) Nutritional Asmnt/Malnutrition Patient General Information Nutritional Screening High Risk Diagnosis dehydration, possible sepsis Pertinent Medical Hx/Surgical Hx seizure, dementia, cerabral palsy, PEG Subjective Information Consult received for antony score 12. Per nurse, pt has PEG placement around noon today. Current Diet Order/ Nutrition Support NPO Pertinent Medications vit D3, D5-0.45ns, levaquin, synthroid, protonix, Pertinent Labs 5/3 Cr 0.3 Nutritional Hx/Data Height 4 ft 4 in Height (Calculated Centimeters) 132.1 Current Weight (lbs) 103 lb Weight (Calculated Kilograms) 46.7 Weight (Calculated Grams) 50229.0 [place] Body Weight 84 Body Mass Index (BMI) 26.7 Weight Status Overweight GI Symptoms GI Symptoms None Last BM none Difficult in: None Skin Integrity/Comment: RED SPOTS ON UPPER AND LOWER EXTREMITIES SURGICAL SCAR to back area Current %PO Negligible < 25% Estimated Nutritional Goals BEE in Kcals: Using Current wt Calories/Kcals/Kg 25-30 Kcals Calculated 9185-2940 Protein: Using Current wt Protein g/k-1.2 Protein Calculated 47-56 Fluid: ml 1175-1410ml (1ml/kcal) Nutritional Problem 1. Problem Problem inadequate energy intake Etiology nutiriton support not initiated Signs/Symptoms: pt on NPO Intervention/Recommendation Comments 1. If tube feeding needed, recommend fibersource 45ml/hr continuous. It provides 1296kcal, 58g protein, 875ml free water, meeting 100% of nutritional needs 2. Monitor TF tolerance, wt weekly, skin integrity and labs 3. F/U as high risk in 2-3 days, 5/5-5/6 Expected Outcomes/Goals Expected Outcomes/Goals 1. Pt to meet at least 75% of nutritional needs via nutrition support with tolerance 2. Wt stability, skin to remain intact, labs to approach WNL.
[2017-07-17] MEDS: Levofloxacin 500mg/100mL 500 MG/100 ML BAG IV SCH (14:31)
[2017-07-17] MEDS: D5-0.45NS 1,000 ML IV SCH (14:33)
--- NOTE | 2017-07-17 17:40 | GI Progress Note ---
Subjective - Review of Systems Service Date: 07/17/17 Events since last encounter: No events Objective - Results Result Diagrams: 07/17/17 05:15 07/17/17 05:15 Recent Labs: Laboratory Last Values WBC 7.0 Th/cmm (4.8-10.8) 07/17/17 05:15 RBC 4.09 Mil/cmm (3.80-5.10) 07/17/17 05:15 Hgb 12.1 gm/dL (12-16) 07/17/17 05:15 Hct 35.6 % (41.0-60) L 07/17/17 05:15 MCV 87.0 fl (81-100) 07/17/17 05:15 MCH 29.6 pg (27.0-31.0) 07/17/17 05:15 MCHC Differential 34.0 pg (28.0-36.0) 07/17/17 05:15 RDW 14.9 % (11.5-20.0) 07/17/17 05:15 Plt Count 294 Th/cmm (150-400) 07/17/17 05:15 MPV 9.4 fl 07/17/17 05:15 Neutrophils % 46.8 % (40.0-80.0) 07/17/17 05:15 Lymphocytes % 41.8 % (20.0-50.0) 07/17/17 05:15 Monocytes % 10.0 % (2.0-10.0) 07/17/17 05:15 Eosinophils % 1.2 % (0.0-5.0) 07/17/17 05:15 Basophils % 0.2 % (0.0-2.0) 07/17/17 05:15 PT 11.0 SECONDS (9.5-11.5) 07/15/17 06:00 INR 1.06 (0.5-1.4) 07/15/17 06:00 PTT (Actin FS) 25.9 SECONDS (26.0-38.0) L 07/14/17 12:20 Sodium 139 mEq/L (136-145) 07/17/17 05:15 Potassium 3.7 mEq/L (3.5-5.1) 07/17/17 05:15 Chloride 107 mEq/L (98-107) 07/17/17 05:15 Carbon Dioxide 24.7 mEq/L (21.0-31.0) 07/17/17 05:15 Anion Gap 11.0 (7.0-16.0) 07/17/17 05:15 BUN 11 mg/dL (7-25) 07/17/17 05:15 Creatinine 0.3 mg/dL (0.6-1.2) L 07/17/17 05:15 Est GFR ( Amer) > 60.0 ml/min (>90) 07/17/17 05:15 Est GFR (Non-Af Amer) > 60.0 ml/min 07/17/17 05:15 BUN/Creatinine Ratio 36.7 07/17/17 05:15 Glucose 114 mg/dL (70-105) H 07/17/17 05:15 Whole Bld Lactic Acid 1.69 mmol/L (0.60-1.99) 07/14/17 14:20 Calcium 8.9 mg/dL (8.6-10.3) 07/17/17 05:15 Total Bilirubin 0.2 mg/dL (0.3-1.0) L 07/14/17 12:20 AST 14 U/L (13-39) 07/14/17 12:20 ALT 15 U/L (7-52) 07/14/17 12:20 Alkaline Phosphatase 75 U/L (34-104) 07/14/17 12:20 Total Protein 7.5 gm/dL (6.0-8.3) 07/14/17 12:20 Albumin 3.7 gm/dL (3.7-5.3) 07/14/17 12:20 Globulin 3.8 gm/dL 07/14/17 12:20 Albumin/Globulin Ratio 1.0 (1.0-1.8) 07/14/17 12:20 Amylase 26 U/L (29-103) L 07/14/17 12:20 Lipase 23 U/L (11-82) 07/14/17 12:20 TSH 9.35 uIU/ml (0.34-5.60) H 07/15/17 06:00 Serum , Qual NEGATIVE (NEGATIVE) 07/14/17 12:20 Urine Source MIDSTREAM 07/14/17 13:41 Urine Color STRAW 07/14/17 13:41 Urine Clarity CLOUDY (CLEAR) H 07/14/17 13:41 Urine pH 7.5 (4.6 - 8.0) 07/14/17 13:41 Ur Specific [place] <= 1.005 (1.005-1.030) 07/14/17 13:41 Urine Protein NEGATIVE mg/dL (NEGATIVE) 07/14/17 13:41 Urine Glucose (UA) NEGATIVE mg/dL (NEGATIVE) 07/14/17 13:41 Urine Ketones NEGATIVE mg/dL (NEGATIVE) 07/14/17 13:41 Urine Blood MODERATE (NEGATIVE) H 07/14/17 13:41 Urine Nitrate NEGATIVE (NEGATIVE) 07/14/17 13:41 Urine Bilirubin NEGATIVE (NEGATIVE) 07/14/17 13:41 Urine Urobilinogen 0.2 E.U./dL (0.2 - 1.0) 07/14/17 13:41 Ur Leukocyte Esterase LARGE (NEGATIVE) H 07/14/17 13:41 Urine RBC 5-10 /hpf (0-5) H 07/14/17 13:41 Urine WBC 25-50 /hpf (0-5) H 07/14/17 13:41 Ur Epithelial Cells MANY /lpf (FEW) 07/14/17 13:41 Urine Bacteria FEW /hpf (NONE SEEN) 07/14/17 13:41 Valproic Acid 50.3 ug/mL (50.0-100.0) 07/14/17 12:20 - Physical Exam Vitals and I&O: Vital Signs Temp 98.0 F 07/17/17 16:00 Pulse 114 07/17/17 16:00 Resp 18 07/17/17 16:00 BP 112/60 07/17/17 16:00 Pulse Ox 96 07/17/17 16:00 Intake & Output 07/16/17 07/17/17 07/17/17 18:59 06:59 18:59 Intake Total 1912.5 212.5 1212.5 Balance 1912.5 212.5 1212.5 Weight (lbs) 51.256 kg 51.256 kg Intake: Intake, IV Amount 1412.5 212.5 1212.5 D5-0.45NS 1,000 ml @ 50 1000 1000 mls/hr IV .Q20H [facility] Rx#: [id number] Levetiracetam 750 mg In 107.5 107.5 107.5 Sodium Chloride 0.9% 100 ml @ 200 mls/hr IV Q12H [facility] Rx#:[id number] Levofloxacin 500mg/100mL 100 500 mg In 100 ml @ 100 mls/hr IV Q24HR [facility] Rx#: [id number] Valproate Sodium 500 mg 105 105 105 In Sodium Chloride 0.9% 100 ml @ 100 mls/hr IV Q12H [facility] Rx#:[id number] Tube Feeding 500 Other: Weight Source Bedscale Bedscale Active Medications: Current Medications Acetaminophen (Tylenol) 650 mg PO Q4H PRN PRN Reason: Pain Or Fever above 101 Stop: 09/12/17 12:46 Albuterol Sulfate (Albuterol 2.5mg/3ml Neb Ud) 2.5 mg HHN Q2HRT PRN PRN Reason: Shortness of Breath or Wheeze Stop: 09/12/17 12:46 Calcium Carbonate (Calcium Carb) 1,200 mg GT BID [facility] Stop: 09/12/17 16:59 Last Admin: 07/17/17 09:02 Dose: 1,200 mg Cholecalciferol (Vitamin D3) 1,000 iu GT DAILY [facility] Stop: 09/13/17 08:59 Last Admin: 07/17/17 09:02 Dose: 1,000 iu Levofloxacin (Levaquin Pb) 500 mg in 100 mls @ 100 mls/hr IV Q24HR [facility] Stop: 09/12/17 14:59 Last Admin: 07/17/17 14:31 Dose: 100 mls/hr Valproate Sodium 500 mg/ (Sodium Chloride) 105 mls @ 100 mls/hr IV Q12H [facility] Stop: 09/12/17 19:59 Last Infusion: 07/17/17 08:40 Dose: Infused Levetiracetam 750 mg/ Sodium (Chloride) 107.5 mls @ 200 mls/hr IV Q12H [facility] Stop: 09/12/17 19:59 Last Infusion: 07/17/17 09:15 Dose: Infused Dextrose/Sodium Chloride (D5-0.45ns) 1,000 mls @ 50 mls/hr IV .Q20H [facility] Stop: 09/13/17 15:34 Last Admin: 07/17/17 14:33 Dose: 50 mls/hr Ipratropium Kaycee (Atrovent Neb 0.5mg/2.5ml) 0.5 mg IH Q2HRT PRN PRN Reason: Shortness of Breath or Wheeze Stop: 09/12/17 12:46 Levothyroxine Sodium (Synthroid) 0.05 mg PO QDAC [facility] Stop: 09/14/17 07:29 Last Admin: 07/17/17 06:40 Dose: 0.05 mg Loratadine (Claritin) 10 mg GT DAILY [facility] Stop: 09/13/17 08:59 Last Admin: 07/17/17 09:02 Dose: 10 mg Lorazepam (Ativan) 1 mg IV Q4H PRN; Protocol PRN Reason: Seizure Stop: 09/12/17 12:46 Last Admin: 07/14/17 18:32 Dose: 1 mg Morphine Sulfate (Morphine) 1 mg IM Q4HR PRN PRN Reason: Severe Pain Stop: 09/13/17 16:11 Ondansetron HCl (Zofran) 4 mg IV Q8H PRN PRN Reason: Nausea / Vomiting Stop: 09/12/17 12:46 Pantoprazole Sodium (Protonix) 40 mg IVP DAILY [facility] Stop: 09/12/17 17:14 Last Admin: 07/17/17 09:02 Dose: 40 mg General: Alert, No acute distress Cardiovascular: Regular rate Lungs: Clear to auscultation Abdomen: Bowel sounds, Soft, Other (G Tube) - Procedures Procedures: Procedures Procedure Code Date EGD PLACE GASTROSTOMY TUBE 42510 07/14/17 INSERTION OF FEEDING DEVICE INTO STOMACH, PERC APPROACH [id number] 07/14/17 PERCUTANEOUS [ENDOSCOPIC] GASTROSTOMY [PEG] 43.11 02/19/00 Assessment/Plan - Problem List Patient Problems: All Active Problems GASTRIC FEEDING TUBE DISLODGEMENT (Acute) - Assessment Assessment: Dysphagia Malfunctioning G tube - Plan Plan: 1. Dysphagia Cont tube feeding 2. Malfunctioning G tube S./P new G tube Cont feeding
[2017-07-18 06:42] LABS: % BASOPHILS 0.3 % (0.0-2.0); % EOSINOPHILS 1.1 % (0.0-5.0); % LYMPHOCYTES 42.7 % (20.0-50.0); % MONOCYTES 11.3 % (2.0-10.0); % NEUTROPHILS 44.6 % (40.0-80.0); EOSINOPHILE ABSOLUTE 0.1 Th/cmm (0.1-0.4); HEMATOCRIT 34.9 % (41.0-60); HEMOGLOBIN 12.1 gm/dL (12-16); LYMPHOCYTE ABSOLUTE 3.7 Th/cmm (1.5-3.0); MEAN CELL VOLUME 86.6 fl (81-100); MEAN CORPUSCULAR HEMOGLOBIN 29.9 pg (27.0-31.0); MEAN CORPUSCULAR HGB CONC 34.5 pg (28.0-36.0); MEAN PLATELET VOLUME 9.8 fl; NEUTROPHILE ABSOLUTE 3.9 Th/cmm (1.8-8.0); PLATELET COUNT 286 Th/cmm (150-400); RED BLOOD COUNT 4.03 Mil/cmm (3.80-5.10); RED CELL DISTRIBUTION WIDTH 14.9 % (11.5-20.0); WHITE BLOOD COUNT 8.7 Th/cmm (4.8-10.8)
[2017-07-18 07:10] LABS: ANION GAP 10.7 (7.0-16.0); BUN - UREA NITROGEN 10 mg/dL (7-25); CALCIUM SERUM 9.1 mg/dL (8.6-10.3); CARBON DIOXIDE 25.5 mEq/L (21.0-31.0); CHLORIDE 104 mEq/L (98-107); CREATININE - SERUM 0.3 mg/dL (0.6-1.2); GFR AFRICAN-AMERICAN > 60.0 ml/min (>90); GFR NON AFRICAN-AMERICAN > 60.0 ml/min; GLUCOSE 107 mg/dL (70-105); POTASSIUM SERUM 4.2 mEq/L (3.5-5.1); SODIUM SERUM 136 mEq/L (136-145)
[2017-07-18] MEDS: Valproate Sodium 500 MG in Sodium Chloride 0.9% 100 ML IV SCH (08:32)
[2017-07-18] MEDS: Multivitamin w/ Minerals Tab GT SCH (08:33)
[2017-07-18] MEDS: Levothyroxine 0.05 Mg Tab PO SCH (08:33)
--- NOTE | 2017-07-18 10:41 | GI Progress Note ---
Subjective - Review of Systems Service Date: 07/18/17 Events since last encounter: No events Subjective: tolerating feeding Objective - Results Result Diagrams: 07/18/17 05:30 07/18/17 05:30 Recent Labs: Laboratory Last Values WBC 8.7 Th/cmm (4.8-10.8) 07/18/17 05:30 RBC 4.03 Mil/cmm (3.80-5.10) 07/18/17 05:30 Hgb 12.1 gm/dL (12-16) 07/18/17 05:30 Hct 34.9 % (41.0-60) L 07/18/17 05:30 MCV 86.6 fl (81-100) 07/18/17 05:30 MCH 29.9 pg (27.0-31.0) 07/18/17 05:30 MCHC Differential 34.5 pg (28.0-36.0) 07/18/17 05:30 RDW 14.9 % (11.5-20.0) 07/18/17 05:30 Plt Count 286 Th/cmm (150-400) 07/18/17 05:30 MPV 9.8 fl 07/18/17 05:30 Neutrophils % 44.6 % (40.0-80.0) 07/18/17 05:30 Lymphocytes % 42.7 % (20.0-50.0) 07/18/17 05:30 Monocytes % 11.3 % (2.0-10.0) H 07/18/17 05:30 Eosinophils % 1.1 % (0.0-5.0) 07/18/17 05:30 Basophils % 0.3 % (0.0-2.0) 07/18/17 05:30 PT 11.0 SECONDS (9.5-11.5) 07/15/17 06:00 INR 1.06 (0.5-1.4) 07/15/17 06:00 PTT (Actin FS) 25.9 SECONDS (26.0-38.0) L 07/14/17 12:20 Sodium 136 mEq/L (136-145) 07/18/17 05:30 Potassium 4.2 mEq/L (3.5-5.1) 07/18/17 05:30 Chloride 104 mEq/L (98-107) 07/18/17 05:30 Carbon Dioxide 25.5 mEq/L (21.0-31.0) 07/18/17 05:30 Anion Gap 10.7 (7.0-16.0) 07/18/17 05:30 BUN 10 mg/dL (7-25) 07/18/17 05:30 Creatinine 0.3 mg/dL (0.6-1.2) L 07/18/17 05:30 Est GFR ( Amer) > 60.0 ml/min (>90) 07/18/17 05:30 Est GFR (Non-Af Amer) > 60.0 ml/min 07/18/17 05:30 BUN/Creatinine Ratio 33.3 07/18/17 05:30 Glucose 107 mg/dL (70-105) H 07/18/17 05:30 Whole Bld Lactic Acid 1.69 mmol/L (0.60-1.99) 07/14/17 14:20 Calcium 9.1 mg/dL (8.6-10.3) 07/18/17 05:30 Total Bilirubin 0.2 mg/dL (0.3-1.0) L 07/14/17 12:20 AST 14 U/L (13-39) 07/14/17 12:20 ALT 15 U/L (7-52) 07/14/17 12:20 Alkaline Phosphatase 75 U/L (34-104) 07/14/17 12:20 Total Protein 7.5 gm/dL (6.0-8.3) 07/14/17 12:20 Albumin 3.7 gm/dL (3.7-5.3) 07/14/17 12:20 Globulin 3.8 gm/dL 07/14/17 12:20 Albumin/Globulin Ratio 1.0 (1.0-1.8) 07/14/17 12:20 Amylase 26 U/L (29-103) L 07/14/17 12:20 Lipase 23 U/L (11-82) 07/14/17 12:20 TSH 9.35 uIU/ml (0.34-5.60) H 07/15/17 06:00 Serum , Qual NEGATIVE (NEGATIVE) 07/14/17 12:20 Urine Source MIDSTREAM 07/14/17 13:41 Urine Color STRAW 07/14/17 13:41 Urine Clarity CLOUDY (CLEAR) H 07/14/17 13:41 Urine pH 7.5 (4.6 - 8.0) 07/14/17 13:41 Ur Specific [place] <= 1.005 (1.005-1.030) 07/14/17 13:41 Urine Protein NEGATIVE mg/dL (NEGATIVE) 07/14/17 13:41 Urine Glucose (UA) NEGATIVE mg/dL (NEGATIVE) 07/14/17 13:41 Urine Ketones NEGATIVE mg/dL (NEGATIVE) 07/14/17 13:41 Urine Blood MODERATE (NEGATIVE) H 07/14/17 13:41 Urine Nitrate NEGATIVE (NEGATIVE) 07/14/17 13:41 Urine Bilirubin NEGATIVE (NEGATIVE) 07/14/17 13:41 Urine Urobilinogen 0.2 E.U./dL (0.2 - 1.0) 07/14/17 13:41 Ur Leukocyte Esterase LARGE (NEGATIVE) H 07/14/17 13:41 Urine RBC 5-10 /hpf (0-5) H 07/14/17 13:41 Urine WBC 25-50 /hpf (0-5) H 07/14/17 13:41 Ur Epithelial Cells MANY /lpf (FEW) 07/14/17 13:41 Urine Bacteria FEW /hpf (NONE SEEN) 07/14/17 13:41 Valproic Acid 50.3 ug/mL (50.0-100.0) 07/14/17 12:20 - Physical Exam Vitals and I&O: Vital Signs Temp 97.8 F 07/18/17 08:38 Pulse 98 07/18/17 08:38 Resp 19 07/18/17 08:38 BP 116/75 07/18/17 08:38 Pulse Ox 97 07/18/17 08:38 Intake & Output 07/17/17 07/18/17 07/18/17 18:59 06:59 18:59 Intake Total 1312.5 312.5 Balance 1312.5 312.5 Weight (lbs) 51.256 kg Intake: Intake, IV Amount 1312.5 212.5 D5-0.45NS 1,000 ml @ 50 1000 mls/hr IV .Q20H [facility] Rx#: [id number] Levetiracetam 750 mg In 107.5 107.5 Sodium Chloride 0.9% 100 ml @ 200 mls/hr IV Q12H [facility] Rx#:[id number] Levofloxacin 500mg/100mL 100 500 mg In 100 ml @ 100 mls/hr IV Q24HR [facility] Rx#: [id number] Valproate Sodium 500 mg 105 105 In Sodium Chloride 0.9% 100 ml @ 100 mls/hr IV Q12H [facility] Rx#:[id number] Other 100 Other: Weight Source Bedscale Active Medications: Current Medications Acetaminophen (Tylenol) 650 mg PO Q4H PRN PRN Reason: Pain Or Fever above 101 Stop: 09/12/17 12:46 Albuterol Sulfate (Albuterol 2.5mg/3ml Neb Ud) 2.5 mg HHN Q2HRT PRN PRN Reason: Shortness of Breath or Wheeze Stop: 09/12/17 12:46 Calcium Carbonate (Calcium Carb) 1,200 mg GT BID [facility] Stop: 09/12/17 16:59 Last Admin: 07/18/17 08:33 Dose: 1,200 mg Cholecalciferol (Vitamin D3) 1,000 iu GT DAILY [facility] Stop: 09/13/17 08:59 Last Admin: 07/18/17 08:33 Dose: 1,000 iu Levofloxacin (Levaquin Pb) 500 mg in 100 mls @ 100 mls/hr IV Q24HR [facility] Stop: 09/12/17 14:59 Last Infusion: 07/17/17 15:31 Dose: Infused Valproate Sodium 500 mg/ (Sodium Chloride) 105 mls @ 100 mls/hr IV Q12H [facility] Stop: 09/12/17 19:59 Last Admin: 07/18/17 08:32 Dose: 100 mls/hr Levetiracetam 750 mg/ Sodium (Chloride) 107.5 mls @ 200 mls/hr IV Q12H [facility] Stop: 09/12/17 19:59 Last Admin: 07/18/17 08:49 Dose: 200 mls/hr Ipratropium [place] (Atrovent Neb 0.5mg/2.5ml) 0.5 mg IH Q2HRT PRN PRN Reason: Shortness of Breath or Wheeze Stop: 09/12/17 12:46 Levothyroxine Sodium (Synthroid) 0.05 mg PO QDAC [facility] Stop: 09/14/17 07:29 Last Admin: 07/18/17 08:33 Dose: 0.05 mg Loratadine (Claritin) 10 mg GT DAILY [facility] Stop: 09/13/17 08:59 Last Admin: 07/18/17 08:33 Dose: 10 mg Lorazepam (Ativan) 1 mg IV Q4H PRN; Protocol PRN Reason: Seizure Stop: 09/12/17 12:46 Last Admin: 07/14/17 18:32 Dose: 1 mg Morphine Sulfate (Morphine) 1 mg IM Q4HR PRN PRN Reason: Severe Pain Stop: 09/13/17 16:11 Ondansetron HCl (Zofran) 4 mg IV Q8H PRN PRN Reason: Nausea / Vomiting Stop: 09/12/17 12:46 Pantoprazole Sodium (Protonix) 40 mg IVP DAILY [facility] Stop: 09/12/17 17:14 Last Admin: 07/18/17 08:33 Dose: 40 mg General: Alert, No acute distress Cardiovascular: Regular rate, Normal S1, Normal S2 Lungs: Clear to auscultation Abdomen: Bowel sounds, Soft, Other (G Tube) - Procedures Procedures: Procedures Procedure Code Date EGD PLACE GASTROSTOMY TUBE 73335 07/14/17 INSERTION OF FEEDING DEVICE INTO STOMACH, PERC APPROACH [id number] 07/14/17 PERCUTANEOUS [ENDOSCOPIC] GASTROSTOMY [PEG] 43.11 02/19/00 Assessment/Plan - Problem List Patient Problems: All Active Problems GASTRIC FEEDING TUBE DISLODGEMENT (Acute) - Assessment Assessment: Dysphagia Malfunctioning G tube - Plan Plan: 1. Dysphagia Cont tube feeding 2. Malfunctioning G tube S./P new G tube Cont feeding
[2017-07-18] MEDS: Levofloxacin 500mg/100mL 500 MG/100 ML BAG IV SCH (15:03)
--- NOTE | 2017-07-18 15:24 | Internal Medicine Prog Note ---
Internal Medicine Subjective - Subjective Service Date: 07/18/17 Patient is:: awake, non-verbal Per staff patient has:: tolerating meds Internal Medicine Objective - Results Result Diagrams: 07/18/17 05:30 07/18/17 05:30 Recent Labs: Laboratory Last Values WBC 8.7 Th/cmm (4.8-10.8) 07/18/17 05:30 RBC 4.03 Mil/cmm (3.80-5.10) 07/18/17 05:30 Hgb 12.1 gm/dL (12-16) 07/18/17 05:30 Hct 34.9 % (41.0-60) L 07/18/17 05:30 MCV 86.6 fl (81-100) 07/18/17 05:30 MCH 29.9 pg (27.0-31.0) 07/18/17 05:30 MCHC Differential 34.5 pg (28.0-36.0) 07/18/17 05:30 RDW 14.9 % (11.5-20.0) 07/18/17 05:30 Plt Count 286 Th/cmm (150-400) 07/18/17 05:30 MPV 9.8 fl 07/18/17 05:30 Neutrophils % 44.6 % (40.0-80.0) 07/18/17 05:30 Lymphocytes % 42.7 % (20.0-50.0) 07/18/17 05:30 Monocytes % 11.3 % (2.0-10.0) H 07/18/17 05:30 Eosinophils % 1.1 % (0.0-5.0) 07/18/17 05:30 Basophils % 0.3 % (0.0-2.0) 07/18/17 05:30 PT 11.0 SECONDS (9.5-11.5) 07/15/17 06:00 INR 1.06 (0.5-1.4) 07/15/17 06:00 PTT (Actin FS) 25.9 SECONDS (26.0-38.0) L 07/14/17 12:20 Sodium 136 mEq/L (136-145) 07/18/17 05:30 Potassium 4.2 mEq/L (3.5-5.1) 07/18/17 05:30 Chloride 104 mEq/L (98-107) 07/18/17 05:30 Carbon Dioxide 25.5 mEq/L (21.0-31.0) 07/18/17 05:30 Anion Gap 10.7 (7.0-16.0) 07/18/17 05:30 BUN 10 mg/dL (7-25) 07/18/17 05:30 Creatinine 0.3 mg/dL (0.6-1.2) L 07/18/17 05:30 Est GFR ( Amer) > 60.0 ml/min (>90) 07/18/17 05:30 Est GFR (Non-Af Amer) > 60.0 ml/min 07/18/17 05:30 BUN/Creatinine Ratio 33.3 07/18/17 05:30 Glucose 107 mg/dL (70-105) H 07/18/17 05:30 Whole Bld Lactic Acid 1.69 mmol/L (0.60-1.99) 07/14/17 14:20 Calcium 9.1 mg/dL (8.6-10.3) 07/18/17 05:30 Total Bilirubin 0.2 mg/dL (0.3-1.0) L 07/14/17 12:20 AST 14 U/L (13-39) 07/14/17 12:20 ALT 15 U/L (7-52) 07/14/17 12:20 Alkaline Phosphatase 75 U/L (34-104) 07/14/17 12:20 Total Protein 7.5 gm/dL (6.0-8.3) 07/14/17 12:20 Albumin 3.7 gm/dL (3.7-5.3) 07/14/17 12:20 Globulin 3.8 gm/dL 07/14/17 12:20 Albumin/Globulin Ratio 1.0 (1.0-1.8) 07/14/17 12:20 Amylase 26 U/L (29-103) L 07/14/17 12:20 Lipase 23 U/L (11-82) 07/14/17 12:20 TSH 9.35 uIU/ml (0.34-5.60) H 07/15/17 06:00 Serum , Qual NEGATIVE (NEGATIVE) 07/14/17 12:20 Urine Source MIDSTREAM 07/14/17 13:41 Urine Color STRAW 07/14/17 13:41 Urine Clarity CLOUDY (CLEAR) H 07/14/17 13:41 Urine pH 7.5 (4.6 - 8.0) 07/14/17 13:41 Ur Specific [place] <= 1.005 (1.005-1.030) 07/14/17 13:41 Urine Protein NEGATIVE mg/dL (NEGATIVE) 07/14/17 13:41 Urine Glucose (UA) NEGATIVE mg/dL (NEGATIVE) 07/14/17 13:41 Urine Ketones NEGATIVE mg/dL (NEGATIVE) 07/14/17 13:41 Urine Blood MODERATE (NEGATIVE) H 07/14/17 13:41 Urine Nitrate NEGATIVE (NEGATIVE) 07/14/17 13:41 Urine Bilirubin NEGATIVE (NEGATIVE) 07/14/17 13:41 Urine Urobilinogen 0.2 E.U./dL (0.2 - 1.0) 07/14/17 13:41 Ur Leukocyte Esterase LARGE (NEGATIVE) H 07/14/17 13:41 Urine RBC 5-10 /hpf (0-5) H 07/14/17 13:41 Urine WBC 25-50 /hpf (0-5) H 07/14/17 13:41 Ur Epithelial Cells MANY /lpf (FEW) 07/14/17 13:41 Urine Bacteria FEW /hpf (NONE SEEN) 07/14/17 13:41 Valproic Acid 50.3 ug/mL (50.0-100.0) 07/14/17 12:20 - Physical Exam Vitals and I&O: Vital Signs Temp 97.5 F 07/18/17 12:04 Pulse 98 07/18/17 12:04 Resp 19 07/18/17 12:04 BP 110/80 07/18/17 12:04 Pulse Ox 98 07/18/17 12:04 Intake & Output 07/17/17 07/18/17 07/18/17 18:59 06:59 18:59 Intake Total 1312.5 312.5 Balance 1312.5 312.5 Weight (lbs) 113 lb Intake: Intake, IV Amount 1312.5 212.5 D5-0.45NS 1,000 ml @ 50 1000 mls/hr IV .Q20H [facility] Rx#: [id number] Levetiracetam 750 mg In 107.5 107.5 Sodium Chloride 0.9% 100 ml @ 200 mls/hr IV Q12H [facility] Rx#:[id number] Levofloxacin 500mg/100mL 100 500 mg In 100 ml @ 100 mls/hr IV Q24HR [facility] Rx#: [id number] Valproate Sodium 500 mg 105 105 In Sodium Chloride 0.9% 100 ml @ 100 mls/hr IV Q12H [facility] Rx#:[id number] Other 100 Other: Stool Characteristics Soft Weight Source Bedscale Active Medications: Current Medications Acetaminophen (Tylenol) 650 mg PO Q4H PRN PRN Reason: Pain Or Fever above 101 Stop: 09/12/17 12:46 Albuterol Sulfate (Albuterol 2.5mg/3ml Neb Ud) 2.5 mg HHN Q2HRT PRN PRN Reason: Shortness of Breath or Wheeze Stop: 09/12/17 12:46 Calcium Carbonate (Calcium Carb) 1,200 mg GT BID [facility] Stop: 09/12/17 16:59 Last Admin: 07/18/17 08:33 Dose: 1,200 mg Cholecalciferol (Vitamin D3) 1,000 iu GT DAILY [facility] Stop: 09/13/17 08:59 Last Admin: 07/18/17 08:33 Dose: 1,000 iu Levofloxacin (Levaquin Pb) 500 mg in 100 mls @ 100 mls/hr IV Q24HR [facility] Stop: 09/12/17 14:59 Last Admin: 07/18/17 15:03 Dose: 100 mls/hr Valproate Sodium 500 mg/ (Sodium Chloride) 105 mls @ 100 mls/hr IV Q12H [facility] Stop: 09/12/17 19:59 Last Admin: 07/18/17 08:32 Dose: 100 mls/hr Levetiracetam 750 mg/ Sodium (Chloride) 107.5 mls @ 200 mls/hr IV Q12H [facility] Stop: 09/12/17 19:59 Last Admin: 07/18/17 08:49 Dose: 200 mls/hr Ipratropium [place] (Atrovent Neb 0.5mg/2.5ml) 0.5 mg IH Q2HRT PRN PRN Reason: Shortness of Breath or Wheeze Stop: 09/12/17 12:46 Levothyroxine Sodium (Synthroid) 0.05 mg PO QDAC [facility] Stop: 09/14/17 07:29 Last Admin: 07/18/17 08:33 Dose: 0.05 mg Loratadine (Claritin) 10 mg GT DAILY [facility] Stop: 09/13/17 08:59 Last Admin: 07/18/17 08:33 Dose: 10 mg Lorazepam (Ativan) 1 mg IV Q4H PRN; Protocol PRN Reason: Seizure Stop: 09/12/17 12:46 Last Admin: 07/14/17 18:32 Dose: 1 mg Morphine Sulfate (Morphine) 1 mg IM Q4HR PRN PRN Reason: Severe Pain Stop: 09/13/17 16:11 Ondansetron HCl (Zofran) 4 mg IV Q8H PRN PRN Reason: Nausea / Vomiting Stop: 09/12/17 12:46 Pantoprazole Sodium (Protonix) 40 mg IVP DAILY [facility] Stop: 09/12/17 17:14 Last Admin: 07/18/17 08:33 Dose: 40 mg General: weak, alert HEENT: NC/AT, PERRLA, other (bilateral eyelid edema) Neck: Supple Lungs: CTAB Abdomen: soft, non-tender, non-distended Extremities: excoriation Neurological: unable to follow command - Procedures Procedures: Procedures Procedure Code Date EGD PLACE GASTROSTOMY TUBE 59250 07/14/17 INSERTION OF FEEDING DEVICE INTO STOMACH, PERC APPROACH [id number] 07/14/17 PERCUTANEOUS [ENDOSCOPIC] GASTROSTOMY [PEG] 43.11 02/19/00 Internal Medicine Assmt/Plan - Assessment Assessment: gt malfunction acute dehydration possible sepsis acute uti bilateral eyelid edema- allergic reaction? dementia seizures - Plan Plan: cbc/bmp in am continue current plan of care Nutritional Asmnt/Malnutr-PDOC - Dietary Evaluation Malnutrition Findings (Please click <Entered> for more info): Nutritional Asmnt/Malnutrition Start: 07/15/17 14: 51 Text: Status: Complete Freq: Document 07/15/17 14:51 JULY (Rec: 07/15/17 15:03 [email or web address] Nutritional Asmnt/Malnutrition Patient General Information Nutritional Screening High Risk Diagnosis dehydration, possible sepsis Pertinent Medical Hx/Surgical Hx seizure, dementia, cerabral palsy, PEG Subjective Information Consult received for antony score 12. Per nurse, pt has PEG placement around noon today. Current Diet Order/ Nutrition Support NPO Pertinent Medications vit D3, D5-0.45ns, levaquin, synthroid, protonix, Pertinent Labs 5/3 Cr 0.3 Nutritional Hx/Data Height 4 ft 4 in Height (Calculated Centimeters) 132.1 Current Weight (lbs) 103 lb Weight (Calculated Kilograms) 46.7 Weight (Calculated Grams) 83797.0 [place] Body Weight 84 Body Mass Index (BMI) 26.7 Weight Status Overweight GI Symptoms GI Symptoms None Last BM none Difficult in: None Skin Integrity/Comment: RED SPOTS ON UPPER AND LOWER EXTREMITIES SURGICAL SCAR to back area Current %PO Negligible < 25% Estimated Nutritional Goals BEE in Kcals: Using Current wt Calories/Kcals/Kg 25-30 Kcals Calculated 1606-9133 Protein: Using Current wt Protein g/k-1.2 Protein Calculated 47-56 Fluid: ml 1175-1410ml (1ml/kcal) Nutritional Problem 1. Problem Problem inadequate energy intake Etiology nutiriton support not initiated Signs/Symptoms: pt on NPO Intervention/Recommendation Comments 1. If tube feeding needed, recommend fibersource 45ml/hr continuous. It provides 1296kcal, 58g protein, 875ml free water, meeting 100% of nutritional needs 2. Monitor TF tolerance, wt weekly, skin integrity and labs 3. F/U as high risk in 2-3 days, 5-/6 Expected Outcomes/Goals Expected Outcomes/Goals 1. Pt to meet at least 75% of nutritional needs via nutrition support with tolerance 2. Wt stability, skin to remain intact, labs to approach WNL.
--- NOTE | 2017-07-18 18:01 | Discharge Summary ---
DATE OF DISCHARGE: 07/18/2017 DISCHARGE DIAGNOSES: G-tube malfunction, status post replacement; acute dehydration, treated with IV fluids; acute urinary tract infection; cerebral palsy; dementia and seizures. HISTORY OF PRESENT ILLNESS: A 42-year-old female, resident of [facility], admitted here to the med-surg unit due to G-tube dysfunction. In the ER, the patient's ER physician tried to reinsert G-tube, unable to due to closure. PHYSICAL EXAMINATION: GENERAL: The patient is well developed, well nourished, no acute distress. VITAL SIGNS: Stable. HEENT: Head is normocephalic and atraumatic. NECK: Supple. No mass. LUNGS: Clear bilaterally. HEART: Regular rate and rhythm. ABDOMEN: Soft and nontender. HOSPITAL COURSE: During the hospital stay, the patient was admitted to the med-surg unit. The patient was kept on empiric IV antibiotics due to acute urinary tract infection. The patient was seen by GI and on 07/15/2017, the patient had a PEG placement. The patient tolerated well; however, on 07/15/2017, the patient was noted to have bilateral eyelid edema. The patient's IV fluids were decreased and the patient was given Benadryl. After that was given, the patient's edematous eyes has resolved. The patient tolerated PEG feedings. For this reason, the patient is stable for discharge. CONDITION UPON DISCHARGE: Fair. DISPOSITION: [facility]. [facility]# [id number]
== END 2017-07-18 17:40 | DRG 394 ==
LOC: ER 11:53 → MSI 13:26
PROVIDERS: ADMIT Internal Medicine; ATTEND Internal Medicine
PROC: 0DH63UZ Insertion of Feeding Device into Stomach, Percutaneous Approach (ICD-10-PCS; principal; 2017-07-15)
DX: K94.23 Gastrostomy malfunction (principal); N39.0 Urinary tract infection, site not specified; E86.0 Dehydration; F03.90 Unspecified dementia, unspecified severity, without behavioral disturbance, psychotic disturbance, mood disturbance, and anxiety; G40.909 Epilepsy, unspecified, not intractable, without status epilepticus; G80.9 Cerebral palsy, unspecified; Z88.2 Allergy status to sulfonamides; Z88.8 Allergy status to other drugs, medicaments and biological substances; Z82.49 Family history of ischemic heart disease and other diseases of the circulatory system; R13.10 Dysphagia, unspecified; H02.846 Edema of left eye, unspecified eyelid; H02.843 Edema of right eye, unspecified eyelid; Y83.9 Surgical procedure, unspecified as the cause of abnormal reaction of the patient, or of later complication, without mention of misadventure at the time of the procedure
CPT/HCPCS: 36415-UA; 71045-TC; 80048-TC; 80053-TC; 80164-TC; 81001-TC; 82150-TC; 83605; 83690-TC; 84443-TC; 84703-TC; 85025-TC; 85610-TC; 85730-TC; 87086-90; 94760; C9113; J0690; J1200; J1953; J1956; J2060; Z7506; Z7610